=== PATIENT | female | born 1980 | race Caucasian/White ===

== ENCOUNTER → 2017-08-17 | Outpatient (REF) | payer MEDICAID ==
[~2017-08-17] MED LIST: DONN16.2 PO; IBUP200T2 PO; NEUR300C PO; NORCOTAB PO; PERCOCET PO; PRIL40CA PO; PYRI200T2 PO; SENO8.6T9 PO; ZANT150T PO; birth control patch TOP; no historical meds
== END ==
LOC: M LAB REF 12:50
PROVIDERS: ATTEND Obstetrics & Gynecology
DX: Z34.82 Encounter for supervision of other normal pregnancy, second trimester (principal)

== ENCOUNTER 2017-10-20 11:30 | Outpatient (CLI) | payer MEDICAID ==
[2017-10-20] MEDS ORDERED: FIORICET TAB PO ×2 (12:15)
[2017-10-20 12:29] LABS: HEMATOCRIT 33.7 % (36.0-47.0); HEMOGLOBIN 11.6 g/dl (12.0-16.0); MEAN CORPUSCULAR HGB CONC 34.4 g/dl (32.0-36.5); MEAN CORPUSCULAR VOLUME 93.1 fl (80.0-96.0); PLATELET COUNT, AUTOMATED 192 10^3/uL (150-450); RED BLOOD COUNT 3.62 10^6/uL (4.00-5.40); RED CELL DISTRIBUTION WIDTH 12.4 % (11.5-14.5); WHITE BLOOD COUNT 7.2 10^3/uL (4.0-10.0)
[2017-10-20 12:52] LABS: ALT/SGPT 13 U/L (12-78); AST/SGOT 13 U/L (7-37); BILIRUBIN,TOTAL 0.3 MG/DL (0.2-1.0); CREATININE FOR GFR 0.48 MG/DL (0.55-1.02); GLOMERULAR FILTRATION RATE > 60.0 (>60); LDH LACTATE DEHYDROGENASE 119 U/L (84-246); URIC ACID 2.4 MG/DL (2.6-6.0)
[2017-10-20 13:06] LABS: CREATININE,RANDOM URINE 20.6 MG/DL
[2017-10-20 13:06] LABS: TOTAL PROTEIN,RANDOM URINE < 5.0 MG/DL (0.0-12.0)
[2017-10-20] MEDS: PROMETHAZINE INJ 25 MG/ML VIAL (J2550) IV (14:29)
[2017-10-20] MEDS: BUTORPHANOL 2 MG/ML INJ (J0595) IV (14:30)
== END 2017-10-20 17:40 | disposition home or self-care (01) ==
LOC: M LDO 11:30
DX: O16.2 Unspecified maternal hypertension, second trimester (principal); O26.892 Other specified pregnancy related conditions, second trimester; R51 Headache; Z3A.26 26 weeks gestation of pregnancy
CPT/HCPCS: 96375

== ENCOUNTER → 2017-10-25 | Outpatient (CLI) | payer OTHER ==
[2017-10-25 09:29] LABS: GLUCOSE, FASTING 182 MG/DL (LESS THAN 95)
[2017-10-25 09:31] LABS: ESTIMATED AVERAGE GLUCOSE 128 MG/DL (60-110); HEMOGLOBIN A1c 6.1 %
[2017-10-25 10:13] LABS: 1 HR GLUCOSE 206 MG/DL (LESS THAN 180)
[2017-10-25 11:12] LABS: 2 HR GLUCOSE 198 MG/DL (LESS THAN 155)
[2017-10-25 12:35] LABS: 3 HR GLUCOSE 134 MG/DL (LESS THAN 140)
== END ==
LOC: M LAB 08:13
DX: O99.810 Abnormal glucose complicating pregnancy (principal)
CPT/HCPCS: 82951

== ENCOUNTER 2017-11-08 18:21 | Outpatient (CLI) | payer OTHER ==
[2017-11-08 19:42] LABS: APPEARANCE, URINE CLOUDY (CLEAR); BACTERIA, URINE AUTO 1+ (NEGATIVE); BILIRUBIN, URINE AUTO NEGATIVE (NEGATIVE); BLOOD, URINE BLOOD NEGATIVE (NEGATIVE); COLOR, URINE AMBER (YELLOW); GLUCOSE, URINE (UA) AUTO NEGATIVE (NEGATIVE); KETONE, URINE AUTO TRACE mg/dL (NEGATIVE); LEUKOCYTE ESTERASE, URINE AUTO NEGATIVE (NEGATIVE); MUCUS, URINE SMALL (NEGATIVE); NITRITE, URINE AUTO NEGATIVE (NEGATIVE); PROTEIN, URINE AUTO 1+ mg/dL (NEGATIVE); RBC, URINE AUTO 1 /HPF (0-3); SPECIFIC GRAVITY URINE AUTO 1.039 (1.002-1.035); SQUAMOUS EPITHELIAL CELL UR AU 17 /HPF (0-6); WBC, URINE AUTO 1 /HPF (0-3)
[2017-11-08] MEDS ORDERED: LR 1,000 ML IV (21:00)
[2017-11-08] MEDS ORDERED: LACTATED RINGER'S 1000 ML IV (21:00)
== END 2017-11-08 23:45 | disposition home or self-care (01) ==
LOC: M LDO 18:21
DX: O26.893 Other specified pregnancy related conditions, third trimester (principal); Z3A.29 29 weeks gestation of pregnancy; E86.0 Dehydration; N89.8 Other specified noninflammatory disorders of vagina; O62.0 Primary inadequate contractions; O99.283 Endocrine, nutritional and metabolic diseases complicating pregnancy, third trimester
CPT/HCPCS: 96360

== ENCOUNTER → 2017-11-27 | Outpatient (CLI) | payer OTHER ==
[2017-11-27] MEDS: FIORICET TAB PO (21:54)
[2017-11-27 22:16] LABS: TOTAL PROTEIN,RANDOM URINE < 5.0 MG/DL (0.0-12.0)
[2017-11-27 22:16] LABS: CREATININE,RANDOM URINE 50.9 MG/DL
== END ==
LOC: M LDO 20:37
DX: O99.89 Other specified diseases and conditions complicating pregnancy, childbirth and the puerperium (principal); Z3A.32 32 weeks gestation of pregnancy; R51 Headache; O13.3 Gestational [pregnancy-induced] hypertension without significant proteinuria, third trimester; O24.419 Gestational diabetes mellitus in pregnancy, unspecified control; O99.333 Smoking (tobacco) complicating pregnancy, third trimester; O99.353 Diseases of the nervous system complicating pregnancy, third trimester; Z86.73 Personal history of transient ischemic attack (TIA), and cerebral infarction without residual deficits
CPT/HCPCS: 82570

== ENCOUNTER → 2017-12-02 | Outpatient (CLI) | payer OTHER ==
[~2017-12-02] MED LIST changes: +ACETAMINOPHEN 500 MG TAB As Ordered; +ACETAMINOPHEN 500 MG TAB PO; -DONN16.2 PO; -IBUP200T2 PO; -NEUR300C PO; -NORCOTAB PO; -PERCOCET PO; -PRIL40CA PO; -PYRI200T2 PO; -SENO8.6T9 PO; -ZANT150T PO; -birth control patch TOP; -no historical meds
== END ==
LOC: M LDO 03:37
DX: O99.89 Other specified diseases and conditions complicating pregnancy, childbirth and the puerperium (principal); Z3A.32 32 weeks gestation of pregnancy; W19.XXXA Unspecified fall, initial encounter; O24.419 Gestational diabetes mellitus in pregnancy, unspecified control; O13.3 Gestational [pregnancy-induced] hypertension without significant proteinuria, third trimester

== ENCOUNTER → 2017-12-20 | Outpatient (REF) | payer OTHER | LOC: M LAB REF 16:35 | DX: Z36.85 Encounter for antenatal screening for Streptococcus B (principal); O09.893 Supervision of other high risk pregnancies, third trimester; Z3A.35 35 weeks gestation of pregnancy | CPT/HCPCS: 87081 ==

== ENCOUNTER 2017-12-24 15:02 | Outpatient (CLI) | payer OTHER | END 2017-12-24 16:26 | disposition home or self-care (01) | LOC: M LDO 15:02 | DX: O26.893 Other specified pregnancy related conditions, third trimester (principal); Z3A.36 36 weeks gestation of pregnancy; R51 Headache; Z87.59 Personal history of other complications of pregnancy, childbirth and the puerperium ==

== ENCOUNTER 2018-01-02 20:22 | Inpatient (IN) | payer OTHER ==
[2018-01-02] MEDS: LR 1,000 ML IV ×2 (21:21→23:41)
[2018-01-02 21:25] LABS: HEMATOCRIT 34.6 % (36.0-47.0); MEAN CORPUSCULAR HEMOGLOBIN 31.3 pg (27.0-33.0); MEAN CORPUSCULAR HGB CONC 34.7 g/dl (32.0-36.5); MEAN CORPUSCULAR VOLUME 90.3 fl (80.0-96.0); PLATELET COUNT, AUTOMATED 196 10^3/uL (150-450); RED BLOOD COUNT 3.83 10^6/uL (4.00-5.40); RED CELL DISTRIBUTION WIDTH 12.7 % (11.5-14.5); WHITE BLOOD COUNT 9.9 10^3/uL (4.0-10.0)
[2018-01-02 21:47] LABS: ALT/SGPT 13 U/L (12-78); AST/SGOT 12 U/L (7-37); BILIRUBIN,TOTAL 0.3 MG/DL (0.2-1.0); GLOMERULAR FILTRATION RATE > 60.0 (>60); LDH LACTATE DEHYDROGENASE 144 U/L (84-246); URIC ACID 4.5 MG/DL (2.6-6.0)
[2018-01-02] MEDS ORDERED: OXYTOCIN INJ 10 UNITS/ML VIAL (J2590) As Ordered ×3 (21:51)
[2018-01-02] MEDS ORDERED: MORPHINE PRES-FREE INJ 10 MG/10 ML VIAL (J2274) As Ordered (21:51)
[2018-01-02] MEDS: LACTATED RINGER'S 1000 ML IV (22:01)
[2018-01-02] MEDS: BICITRA 30ML SOLN UDC PO (22:01)
[2018-01-02] MEDS ORDERED: EPINEPHrine INJ 1 MG/ML 1ML AMP As Ordered (22:12)
[2018-01-02] MEDS ORDERED: ONDANSETRON 4MG/2ML VIAL (J2405) IV ×2 (22:27→23:45)
[2018-01-02] MEDS ORDERED: NALOXONE INJ 0.4 MG/1 ML VIAL (J2310) IV ×2 (22:27)
[2018-01-02] MEDS ORDERED: NALBUPHINE HCL 10 MG/ML AMP (J2300) IV (22:27)
[2018-01-02] MEDS ORDERED: METOCLOPRAMIDE INJ 10MG/2ML VIAL (J2765) IV (22:27)
[2018-01-02] MEDS ORDERED: ePHEDrine SULFATE 25 MG/5 ML(5MG/ML) SYRINGE As Ordered ×2 (22:36)
[2018-01-02] MEDS ORDERED: PHENYLephrine HCL 500 MCG/5 ML (100MCG/ML) SYRINGE (J2370) As Ordered (22:36)
[2018-01-02] MEDS ORDERED: ONDANSETRON 4MG/2ML VIAL (J2405) As Ordered (22:38)
[2018-01-02] MEDS ORDERED: KETOROLAC 60 MG/2 ML VIAL (J1885) As Ordered ×2 (23:11→23:12)
[2018-01-02] MEDS ORDERED: MOM 30ML SUSPENSION UDC PO (23:45)
[2018-01-02] MEDS ORDERED: fentaNYL 100 MCG/2 ML INJECTION (J3010) IV (23:45)
[2018-01-02] MEDS ORDERED: PERCOCET 5MG/325MG TAB PO ×2 (23:45)
[2018-01-02] MEDS: OXYTOCIN DRIP 30 UNITS in APPROPRIATE DILUENT 1 EA IV (23:45)
[2018-01-02] MEDS ORDERED: RHOGAM 300 MCG (1500 IU) INJ (J2790) IM (23:45)
[2018-01-02] MEDS ORDERED: MEASLES,MUMPS,RUBELLA VACCINE INJ (MMR-II) (90707) SC (23:45)
[2018-01-03] MEDS: KETOROLAC 30 MG/ML VIAL (J1885) IV ×4 (06:06→23:08)
[2018-01-03] MEDS: LR 1,000 ML IV ×2 (07:41→15:41)
[2018-01-03 08:38] LABS: HEMATOCRIT 31.8 % (36.0-47.0); HEMOGLOBIN 10.7 g/dl (12.0-16.0); MEAN CORPUSCULAR HEMOGLOBIN 30.4 pg (27.0-33.0); MEAN CORPUSCULAR HGB CONC 33.6 g/dl (32.0-36.5); MEAN CORPUSCULAR VOLUME 90.3 fl (80.0-96.0); PLATELET COUNT, AUTOMATED 182 10^3/uL (150-450); RED BLOOD COUNT 3.52 10^6/uL (4.00-5.40); RED CELL DISTRIBUTION WIDTH 12.8 % (11.5-14.5); WHITE BLOOD COUNT 12.1 10^3/uL (4.0-10.0)
[2018-01-03] MEDS: PRENATAL VITAMINS CHEWABLE TABLET PO (09:14)
[2018-01-04] MEDS: PRENATAL VITAMINS CHEWABLE TABLET PO (08:31)
[2018-01-04] MEDS: IBUPROFEN 800 MG TAB PO ×2 (08:32→16:38)
[2018-01-05] MEDS: IBUPROFEN 800 MG TAB PO ×2 (00:25→07:02)
[2018-01-05] MEDS: PRENATAL VITAMINS CHEWABLE TABLET PO (07:42)
== END 2018-01-05 10:10 | disposition home or self-care (01) | DRG 540 ==
LOC: M LDO 20:22 → M OBS 01-03 01:10 → M LDI 20:58
PROVIDERS: Obstetrics & Gynecology
PROC: 10D00Z1 Extraction of Products of Conception, Low, Open Approach (ICD-10-PCS; principal; 2018-01-02 07:53)
PROC: 0UL70DZ Occlusion of Bilateral Fallopian Tubes with Intraluminal Device, Open Approach (ICD-10-PCS; 2018-01-02 07:53)
DX: O34.211 Maternal care for low transverse scar from previous cesarean delivery (principal); F17.200 Nicotine dependence, unspecified, uncomplicated; Z37.0 Single live birth; Z3A.37 37 weeks gestation of pregnancy; O09.523 Supervision of elderly multigravida, third trimester; Z30.2 Encounter for sterilization; O99.334 Smoking (tobacco) complicating childbirth

== ENCOUNTER → 2018-02-11 | Outpatient (REF) | payer OTHER ==
[2018-02-11 18:27] LABS: FREE T4 0.82 NG/DL (0.76-1.46)
[2018-02-11 18:34] LABS: RUBELLA IgG QUALITATIVE IMMUNE (IMMUNE)
[2018-02-13 08:06] LABS: RUBEOLA IgG ANTIBODY <25.0 AU/mL (Immune >29.9)
[2018-02-13 08:06] LABS: MUMPS VIRUS IgG ANTIBODY <9.0 AU/mL (Immune >10.9)
== END ==
LOC: M LAB REF 17:35
DX: Z02.1 Encounter for pre-employment examination (principal)
CPT/HCPCS: 84443

== ENCOUNTER → 2018-02-14 | Outpatient (REF) | payer OTHER, MEDICAID ==
[2018-02-14 19:41] LABS: CHOLESTEROL LEVEL 262 MG/DL (<200); CHOLESTEROL RISK RATIO 7.485 (<5); HDL CHOLESTEROL 35 MG/DL (>40); NON-HDL-C 227 MG/DL; TRIGLYCERIDES LEVEL 568 MG/DL (<150)
== END ==
LOC: M LAB REF 18:52
DX: Z13.220 Encounter for screening for lipoid disorders (principal)
CPT/HCPCS: 80061

== ENCOUNTER → 2018-02-16 | Outpatient (CLI) | payer OTHER ==
[2018-02-16 08:28] LABS: GLUCOSE, FASTING 116 MG/DL (70-100)
[2018-02-16 09:39] LABS: 1 HR GLUCOSE 226 MG/DL (LESS THAN 199)
[2018-02-16 10:25] LABS: 2 HR GLUCOSE 103 MG/DL (LESS THAN 140)
== END ==
LOC: M LAB 07:19
DX: Z86.32 Personal history of gestational diabetes (principal)
CPT/HCPCS: 82951

== ENCOUNTER → 2018-03-01 | Outpatient (CLI) | payer OTHER ==
[~2018-03-01] MED LIST changes: -ACETAMINOPHEN 500 MG TAB As Ordered; -ACETAMINOPHEN 500 MG TAB PO; +ISOVUE-370 76% 100ML VIAL (Q9967) As Ordered
== END ==
LOC: M RADPRO 12:02
DX: Z98.51 Tubal ligation status (principal)
CPT/HCPCS: 58340

== ENCOUNTER → 2018-04-19 | Outpatient (REF) | payer OTHER ==
[2018-04-19 18:22] LABS: RHEUMATOID FACTOR QUANT < 10.0 IU/ML (<15.0)
[2018-04-23 00:13] LABS: ANTI DOUBLE STRAND-DNA AB <1 IU/mL (0-9); ANTINUCLEAR ANTIBODIES DIRECT Positive (Negative); Lyme Disease IgG/IgM Antibodie <0.91 ISR (0.00-0.90); Lyme Disease IgM Ab Quantitati <0.80 index (0.00-0.79); SJOGREN'S ANTI SS-A <0.2 AI (0.0-0.9); SJOGREN'S ANTI SS-B <0.2 AI (0.0-0.9); SMITH ANTIBODIES <0.2 AI (0.0-0.9)
== END ==
LOC: M LAB REF 17:05
DX: M25.50 Pain in unspecified joint (principal)
CPT/HCPCS: 86038

== ENCOUNTER → 2018-06-28 | Outpatient (REF) | payer OTHER ==
[2018-07-01 00:07] LABS: CYCLIC CITRULLINATED PEPTIDE 6 units (0-19)
== END ==
LOC: M LAB REF 12:02
DX: M25.50 Pain in unspecified joint (principal)
CPT/HCPCS: 86200

== ENCOUNTER → 2018-07-18 | Outpatient (REF) | payer OTHER | LOC: M SFHCLERA 18:53 | DX: R53.81 Other malaise (principal) ==

== ENCOUNTER → 2018-07-18 | Outpatient (CLI) | payer OTHER | LOC: M LRY 18:48 | DX: R09.89 Other specified symptoms and signs involving the circulatory and respiratory systems (principal) | CPT/HCPCS: 71046 ==

== ENCOUNTER → 2018-11-16 | Outpatient (CLI) | payer OTHER ==
[~2018-11-16] MED LIST changes: +BENA25CA4 PO; +DONN16.2 PO; +IBUP-1114 PO; +IBUP200T2 PO; -ISOVUE-370 76% 100ML VIAL (Q9967) As Ordered; +LABE10TAB PO; +MAPA500T2 PO; +METF500T13 PO; +NEUR300C PO; +NORCOTAB PO; +OMEP40CA2 PO; +PERC5TAB12 PO; +PERCOCET PO; +PRENTAB9 PO; +PRIL40CA PO; +PYRI200T2 PO; +RANI15TA PO; +SENO8.6T9 PO; +VITATAB11 PO; +ZANT150T PO; +birth control patch TOP; +no historical meds
--- NOTE | 2018-11-16 11:12 | REP ---
Clinical: Arthralgia. Technique: AP and frog lateral views of the right and left hip. Findings: Hip joints appear relatively symmetric. Minimal increased sclerosis along the acetabular roof is suggested without significant joint space narrowing. No significant osteophytosis, periarticular calcifications or loose bodies identified. Proximal femurs appear intact and normal. Impression: Relatively symmetric age-appropriate examination. Electronically Signed by Claudy Guevara MD 11/16/2018 11:04 A
--- NOTE | 2018-11-16 11:13 | REP ---
Clinical: Arthralgia. Technique: AP, inlet, and bilateral oblique views of the sacroiliac joints. Findings: The bilateral sacroiliac joints are symmetric and normal for age. The surrounding osseous structures are intact. The surrounding soft tissues are normal. Evidence for tubal ligation and piercing. Impression: Essentially normal symmetric appearance the bilateral sacroiliac joints. Electronically Signed by Claudy Guevara MD 11/16/2018 11:05 A
[2018-11-16 13:33] LABS: BASO % 0.5 % (0.0-1.0); EOS # 0.4 10^3/uL (0.0-0.50); EOS % 4.1 % (0.0-3.0); HEMATOCRIT 42.2 % (36.0-47.0); HEMOGLOBIN 13.9 g/dl (12.0-15.5); LYMPH # 2.7 10^3/uL (1.5-4.5); LYMPH % 31.6 % (24.0-44.0); MEAN CORPUSCULAR HEMOGLOBIN 31.3 pg (27.0-33.0); MEAN CORPUSCULAR HGB CONC 32.9 g/dl (32.0-36.5); MONO # 0.8 10^3/uL (0.0-0.8); MONO % 9.5 % (0.0-5.0); NEUTROPHILS # 4.6 10^3/uL (1.8-7.7); NEUTROPHILS % 53.9 % (36.0-66.0); PLATELET COUNT, AUTOMATED 254 10^3/uL (150-450); RED BLOOD COUNT 4.44 10^6/uL (4.00-5.40); WHITE BLOOD COUNT 8.6 10^3/uL (4.0-10.0)
[2018-11-16 13:41] LABS: ALBUMIN 3.9 GM/DL (3.2-5.2); ALT/SGPT 31 U/L (12-78); BILIRUBIN,TOTAL 0.4 MG/DL (0.2-1.0); BLOOD UREA NITROGEN 9 MG/DL (7-18); C REACTIVE PROTEIN QUANTITATIV < 0.30 MG/DL (0.00-0.30); CARBON DIOXIDE LEVEL 28 MEQ/L (21-32); CHLORIDE LEVEL 105 MEQ/L (98-107); CREATININE FOR GFR 0.78 MG/DL (0.55-1.30); GLOMERULAR FILTRATION RATE > 60.0 (>60); GLUCOSE, FASTING 141 MG/DL (70-100); POTASSIUM SERUM 4.7 MEQ/L (3.5-5.1); SODIUM LEVEL 137 MEQ/L (136-145); TOTAL PROTEIN 6.7 GM/DL (6.4-8.2)
[2018-11-16 14:01] LABS: ERYTHROCYTE SEDIMENTATION RATE 5 mm/hr (0-20)
[2018-11-18 00:07] LABS: ANA (HEP2) Negative (.); RNP ANTIBODY 0.7 AI (0.0-0.9); SMITHS ANTIBODY < 0.2 AI (0.0-0.9)
== END ==
LOC: M SMT 10:40
PROVIDERS: ATTEND Internal Medicine Rheumatology
DX: M25.559 Pain in unspecified hip (principal); R76.8 Other specified abnormal immunological findings in serum

== ENCOUNTER → 2019-03-31 | Outpatient (REF) | payer OTHER ==
[~2019-03-31] MED LIST changes: +OXYC1TAB23 PO; -PERCOCET PO
== END ==
LOC: M LAB REF 11:28
PROVIDERS: ATTEND Internal Medicine
DX: F17.210 Nicotine dependence, cigarettes, uncomplicated (principal); F18.10 Inhalant abuse, uncomplicated

== ENCOUNTER 2019-05-19 13:29 | Emergency (ER) | payer OTHER ==
[~2019-05-19] VITALS: Ht 167.6 cm; Wt 89.1 kg
[~2019-05-19 13:29] MED LIST changes: -OMEP40CA2 PO; +OMEP40CA97 PO
[2019-05-19] MEDS ORDERED: ESCI20TA (13:37)
[2019-05-19] MEDS ORDERED: ATOR40TA75 (13:37)
[2019-05-19] MEDS ORDERED: VALS1TAB66 (13:37)
[2019-05-19 14:04] LABS: BASO % 0.3 % (0.0-1.0); EOS # 0.3 10^3/uL (0.0-0.50); EOS % 3.7 % (0.0-3.0); HEMATOCRIT 40.6 % (36.0-47.0); HEMOGLOBIN 13.8 g/dl (12.0-15.5); LYMPH # 1.4 10^3/uL (1.5-4.5); MEAN CORPUSCULAR HEMOGLOBIN 32.2 pg (27.0-33.0); MEAN CORPUSCULAR VOLUME 94.6 fl (80.0-96.0); MONO # 0.5 10^3/uL (0.0-0.8); MONO % 5.4 % (0.0-5.0); NEUTROPHILS # 6.6 10^3/uL (1.8-7.7); NEUTROPHILS % 74.4 % (36.0-66.0); PLATELET COUNT, AUTOMATED 301 10^3/uL (150-450); RED BLOOD COUNT 4.29 10^6/uL (4.00-5.40); WHITE BLOOD COUNT 8.9 10^3/uL (4.0-10.0)
[2019-05-19 14:28] LABS: ALBUMIN 4.3 GM/DL (3.2-5.2); BILIRUBIN,DIRECT 0.2 MG/DL (0.0-0.2); BILIRUBIN,TOTAL 0.8 MG/DL (0.2-1.0); CALCIUM LEVEL 9.8 MG/DL (8.5-10.1); CREATININE FOR GFR 1.17 MG/DL (0.55-1.30); GLOMERULAR FILTRATION RATE 55.4 (>60); POTASSIUM SERUM 3.2 MEQ/L (3.5-5.1); TOTAL PROTEIN 7.2 GM/DL (6.4-8.2)
[2019-05-19] MEDS ORDERED: NS 1,000 ML IV ONE (15:00)
[2019-05-19] MEDS ORDERED: ISOVUE-370 76% 100ML VIAL (Q9967) As Ordered ONE (15:01)
--- NOTE | 2019-05-19 15:32 | REP ---
Clinical: Abdominal pain and diarrhea with recent gastric bypass surgery. Technique: Axial contrast enhanced images from the lung bases to the pubic symphysis using 100 ml Isovue 370 intravenous contrast material. Comparison: 11/14/2013. Findings: Lung bases are clear. Visualized heart and pericardium normal. Liver, spleen, pancreas, bilateral adrenal glands and kidneys are normal. Evidence for prior gastric bypass surgery and cholecystectomy. Mildly prominent fluid filled loops of small and large bowel noted throughout the abdomen and pelvis consistent with enterocolitis and a given history of diarrhea. No bowel obstruction. Pelvis demonstrates collapsed bladder and age-appropriate uterus/adnexa with suspected myomatous changes. No ascites. No free air. No adenopathy. Abdominal aorta without aneurysm or dissection. Musculoskeletal structures intact. Impression: Findings suggesting enterocolitis. Electronically Signed by Claudy Guevara MD 05/19/2019 03:24 P
[2019-05-19] MEDS ORDERED: ACETAMINOPHEN 325 MG TAB PO ONE (16:30)
[2019-05-19] MEDS ORDERED: ONDANSETRON 4MG/2ML VIAL (J2405) IV ONE (16:30)
[2019-05-19] MEDS ORDERED: POTASSIUM CHLORIDE 10 MEQ SR TABLET PO ONE (16:45)
[2019-05-19 17:45] VITALS: BP 106/54
== END 2019-05-19 17:52 | disposition home or self-care (01) ==
LOC: M ED 13:29
DX: E86.0 Dehydration (principal); R93.3 Abnormal findings on diagnostic imaging of other parts of digestive tract; Z98.890 Other specified postprocedural states; Z98.84 Bariatric surgery status; E11.9 Type 2 diabetes mellitus without complications; I10 Essential (primary) hypertension; K21.9 Gastro-esophageal reflux disease without esophagitis; F17.210 Nicotine dependence, cigarettes, uncomplicated; Z79.899 Other long term (current) drug therapy
CPT/HCPCS: 74177; 80048; 80076; 83690; 84702; 85025; 96374; 99284; J2405; Q9967

== ENCOUNTER → 2019-08-15 | Outpatient (REF) | payer OTHER ==
[~2019-08-15] MED LIST changes: +ATOR40TA75; +ESCI20TA; +VALS1TAB66
[2019-08-15 18:39] LABS: PERCENT SATURATION 29.6 % (13.2-45.0)
== END ==
LOC: M LAB REF 16:50
PROVIDERS: ATTEND Internal Medicine
DX: Z98.84 Bariatric surgery status (principal)

== ENCOUNTER → 2019-08-17 | Outpatient (REF) | payer OTHER | LOC: M SFHCPLAZ 09:51 | PROVIDERS: ATTEND Dermatology | DX: L57.0 Actinic keratosis (principal) ==

== ENCOUNTER → 2019-09-26 | Outpatient (REF) | payer OTHER | LOC: M LAB REF 19:07 | PROVIDERS: ATTEND Dermatology | DX: L72.11 Pilar cyst (principal) ==

== ENCOUNTER → 2019-11-14 | Outpatient (REF) | payer OTHER | LOC: M LAB REF 10:37 | PROVIDERS: ATTEND Dermatology | DX: L72.11 Pilar cyst (principal) ==

== ENCOUNTER 2019-11-18 12:55 | Emergency (ER) | payer OTHER ==
[~2019-11-18] VITALS: Ht 167.6 cm; Wt 69.5 kg
[2019-11-18] MEDS ORDERED: NITR100C2 PO (13:05)
[2019-11-18] MEDS ORDERED: PHEN-501 PO (13:05)
[2019-11-18] MEDS ORDERED: BUPR1TAB52 PO (13:05)
[2019-11-18] MEDS ORDERED: HYDR-3363 PO (13:05)
[2019-11-18] MEDS ORDERED: NS 1,000 ML IV ONE (13:45)
[2019-11-18 13:56] LABS: BASO % 0.4 % (0.0-1.0); EOS # 0.2 10^3/uL (0.0-0.5); EOS % 2.2 % (0.0-3.0); HEMATOCRIT 38.7 % (36.0-47.0); HEMOGLOBIN 12.5 g/dl (12.0-15.5); LYMPH # 2.7 10^3/uL (1.5-5.0); MEAN CORPUSCULAR HEMOGLOBIN 30.7 pg (27.0-33.0); MEAN CORPUSCULAR HGB CONC 32.3 g/dl (32.0-36.5); MEAN CORPUSCULAR VOLUME 95.1 fl (80.0-96.0); MONO # 0.8 10^3/uL (0.0-0.8); NEUTROPHILS # 5.1 10^3/uL (1.5-8.5); PLATELET COUNT, AUTOMATED 235 10^3/uL (150-450); RED BLOOD COUNT 4.07 10^6/uL (4.00-5.40); WHITE BLOOD COUNT 8.9 10^3/uL (4.0-10.0)
[2019-11-18 14:28] LABS: ALBUMIN 3.7 GM/DL (3.2-5.2); ALT/SGPT 21 U/L (12-78); BILIRUBIN,DIRECT 0.1 MG/DL (0.0-0.2); BILIRUBIN,TOTAL 0.3 MG/DL (0.2-1.0); BLOOD UREA NITROGEN 7 MG/DL (7-18); CALCIUM LEVEL 8.7 MG/DL (8.5-10.1); CARBON DIOXIDE LEVEL 28 MEQ/L (21-32); CHLORIDE LEVEL 111 MEQ/L (98-107); GLOMERULAR FILTRATION RATE > 60.0 (>60); GLUCOSE, FASTING 70 MG/DL (70-100); LIPASE 100 U/L (73-393); POTASSIUM SERUM 4.3 MEQ/L (3.5-5.1); SODIUM LEVEL 144 MEQ/L (136-145); TOTAL PROTEIN 6.3 GM/DL (6.4-8.2)
[2019-11-18] MEDS ORDERED: ISOVUE-370 76% 100ML VIAL (Q9967) As Ordered ONE (14:29)
--- NOTE | 2019-11-18 15:04 | REP ---
CT of the abdomen and pelvis with IV contrast, without bowel contrast for left sided abdominal pain: Comparison is 05/19/2019. The visualized lung singh are unremarkable. The hepatic parenchyma is homogeneous. There are surgical clips in the gallbladder fossa. The pancreas and spleen are unremarkable. The adrenals are unremarkable. The kidneys are unremarkable. The abdominal aorta is unremarkable. There is no retroperitoneal/periaortic adenopathy or mass. There is wall thickening of the transverse colon, descending colon, sigmoid colon. This is nonspecific but compatible with colitis in the appropriate clinical setting. There are multiple loops of proximal and mid small bowel h with wall thickening and mild wall enhancement compatible with enteritis in the appropriate clinical setting. The mesentery is unremarkable. There is no ascites. There are surgical clips in the upper abdomen compatible with bariatric surgery. Pelvis: The appendix is unremarkable. The uterus is anteverted. There is a 2.2 cm left adnexal cyst. There is no ascites. Impression: Findings are compatible with enterocolitis in the appropriate clinical setting. There is no ascites. 2.2 cm left adnexal cyst. Cholecystectomy. Electronically Signed by Flaquito Hatfield MD 11/18/2019 02:56 P
[2019-11-18 15:31] VITALS: BP 106/55
== END 2019-11-18 15:33 | disposition home or self-care (01) ==
LOC: M ED 12:55
DX: K52.9 Noninfective gastroenteritis and colitis, unspecified (principal); N83.202 Unspecified ovarian cyst, left side; N39.0 Urinary tract infection, site not specified; I10 Essential (primary) hypertension; K21.9 Gastro-esophageal reflux disease without esophagitis; F17.210 Nicotine dependence, cigarettes, uncomplicated; Z79.899 Other long term (current) drug therapy; Z98.0 Intestinal bypass and anastomosis status; Z98.890 Other specified postprocedural states
CPT/HCPCS: 36415; 74177; 80048; 80076; 81001; 83690; 85025; 87086; 96360; 96361; 99284; Q9967

== ENCOUNTER → 2020-01-08 | Outpatient (REF) | payer OTHER ==
[~2020-01-08] MED LIST changes: +BUPR1TAB52 PO; +HYDR-3363 PO; +NITR100C2 PO; +PHEN-501 PO
[2020-01-09 13:30] LABS: CHLAMYDIA DNA AMPLIFICATION NEGATIVE (NEGATIVE); GC DNA AMPLIFICATION NEGATIVE (NEGATIVE)
== END ==
LOC: M SFHCLERA 19:57
PROVIDERS: ATTEND Nurse Practitioner Family
DX: R30.0 Dysuria (principal)

== ENCOUNTER → 2020-03-22 | Outpatient (REF) | payer OTHER ==
[2020-03-26 15:12] LABS: C-PEPTIDE 7.9 ng/mL (1.1-4.4); INSULIN LEVEL 45.8 uIU/mL (2.6-24.9)
== END ==
LOC: M LAB REF 17:01
PROVIDERS: ATTEND Internal Medicine
DX: E16.2 Hypoglycemia, unspecified (principal)

== ENCOUNTER → 2020-04-04 | Outpatient (REF) | payer OTHER ==
[2020-04-05 08:09] LABS: C-PEPTIDE 3.1 ng/mL (1.1-4.4); INSULIN LEVEL 10.4 uIU/mL (2.6-24.9)
== END ==
LOC: M LAB REF 12:10
PROVIDERS: ATTEND Internal Medicine
DX: E16.2 Hypoglycemia, unspecified (principal)

== ENCOUNTER → 2020-06-05 | Outpatient (REF) ==
[2020-06-08 10:08] LABS: RUBEOLA IgG ANTIBODY 38.4 AU/mL (Immune >16.4)
== END ==
LOC: M LAB 09:28
PROVIDERS: ATTEND Nurse Practitioner Adult Health
DX: Z02.1 Encounter for pre-employment examination (principal)

== ENCOUNTER 2020-11-19 13:54 | Emergency (ER) | payer OTHER ==
[~2020-11-19] VITALS: Ht 167.6 cm; Wt 64.5 kg
[~2020-11-19 13:54] MED LIST changes: -ESCI20TA; +ESCI20TA16; +LABE100T4 PO; -LABE10TAB PO
--- OUTSIDE RECORDS SUMMARY | 2020-11-19 15:05 | CCD | Continuity of Care Document ---
Author Author Sury MORAN MD Organization Unknown Address [address] [place] [address], [address] [address] Phone [phone] Care Team Providers Care Toll Service Observer Name Role Phone Emilia Padilla DO AUTM [phone] Lewis Brito PA-C AUTM [phone] Problems Description No Information Available Social History Type Date Description Comments Sex Unknown Allergies, Adverse Reactions, Alerts Description No Information Available Medications Description No Information Available Immunizations Description No Information Available Vital Signs Description No Information Available Results Description No Information Available Procedures Date Code Description Status 09/26/2020 60926 MRI Upper Extremity Any Joint Co mpleted Medical Devices Description No Information Available Encounters Type Date Location Provider Dx Diagnosis Office Visit 10/03/2020 1:00p Opal Moran MD M77.11 Lateral epicondylitis, right elbow Office Visit 08/06/2020 9:30a Opal Moran MD M25.521 Pain in right elbow 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, righ t elbow Assessments Date Code Description Provider 10/03/2020 M77.11 Lateral epicondylitis, right elb ow Vik Moran MD 09/26/2020 M25.521 Pain in right elbow Vik gallegos MD 09/26/2020 M25.521 Pain in right elbow MRI 08/06/2020 M25.521 Pain in right elbow Vik galleogs MD 08/06/2020 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, right el bow Vik Moran MD Plan of Treatment 10/03/2020 - Vik Moran MD* M77.11 Lateral epicondylitis, right elbow* Follow up:* 2 months right elbow recheck with a PA per [facility] Functional Status Description No Information Available Mental Status Description No Information Available Referrals Refer to Reason for Referral Status Appt Date Vik Moran MD MRI RT ELBOW WRITTEN AUTH. PASSED TO XRAY. LS Created [address] [facility], [address] [place] [address] [phone]
--- OUTSIDE RECORDS SUMMARY | 2020-11-19 15:05 | CCD ---
Author Author [facility] Organization [facility] Address Unknown Phone Unavailable Care Team Providers Care Marketing Content Specialist Name Role Phone Leobardo Dozier Unavailable PROBLEMS Type Condition ICD9-CM Code [id number] Code Onset Dates Condition S tatus SNOMED Code Notes Problem Melanocytic nevi of face D22.30 Active 6334431 04 Problem Actinic keratoses L57.0 Active 826559543 Problem Lentigines L81.4 Active 588988546 Problem Melanocytic nevi of right upper limb, including shoulder D22.61 Active 369130987 Problem Melanocytic nevi of trunk D22.5 Active 364239 002 Problem Hirsutism L68.0 Active 173675581 Problem Melanocytic nevi of left lower limb, including hip D22.72 Active 187359830 Problem Melanocytic nevi of right lower limb, including hip D22.71 Active 759924022 Problem Melanocytic nevi of left upper limb, including shoulder D22.62 Active 879871757 ALLERGIES No Known Allergies ENCOUNTERS from 1980 to 2020-11-10 Encounter Location Date Provider Diagnosis [facility] Dermatology [address] [address] Oct, Leobardo Dozier IMMUNIZATIONS No Information SOCIAL HISTORY Tobacco Use: Social History Observation Description Date Details (start date - stop date) Current Smoker Sex Assigned At : Social History Observation Description Sex Assigned At Unknown Alcohol Screening: Question Answer Notes Did you have a drink containing alcohol in the past year? Ye s Points 2 Interpretation Negative How often did you have six or more drinks on one occas ion in the past year? Never (0 points) How many drinks did you have on a typica l day when you were drinking in the past year? 3 or 4 (1 point) How often did you have a drink containing alcohol in t he past year? Monthly or less (1 point) Tobacco Use: Question Answer Notes Are you a: current smoker How many cigarettes a day do you smoke? 11-20 Are you interested in quitting? Not ready to quit REASON FOR REFERRAL No Information VITAL SIGNS No information MEDICATIONS Medication SIG (Take, Route, Frequency, Duration) Notes Start Da te End Date Status Aspirin 81 Active Calcium + D Active Margy-D 24 Hour 180-240 MG 1 tablet Orally Once a day for 30 day(s) Active Atorvastatin Calcium 40 MG 1 tablet Orally Once a day Active Biotin 10 MG 1 tablet Orally Once a day for 30 day(s) Active Progesterone 100 MG 1 capsules Do not take Bring capsule to appointment with you for 1 days Active HydrOXYzine HCl 25 MG 2 tablets Orally Active Daily Vitamin Active Folic Acid 400 MCG 1 tablet Orally Once a day for 30 day(s) Active Vitamin B Complex Active Escitalopram Oxalate 20 MG 1 tablet Oral Once a day Active Omeprazole 40 MG Orally Active PROCEDURES No Information RESULTS No Results REASON FOR VISIT R/S Patch Testing MEDICAL (GENERAL) HISTORY Type Description Date Medical History hypertension Medical History seizures- age 20 Medical History right breast abscess (02/27) Surgical History carpal tunnel release-right wrist Surgical History tonsillectomy Surgical History C section X 3 Surgical History cyst removal from left foot and tailbone X 2 Surgical History gall bladder 01/24/2013 Surgical History umbilical hernia repair 01/24/13 Hospitalization History surgery and childbirth only Goals Section No Information Health Concerns No Information MEDICAL EQUIPMENT No Information MENTAL STATUS No Information FUNCTIONAL STATUS No Information ASSESSMENTS No Information PLAN OF TREATMENT Medication Medication Name Sig Start Date Stop Date Progesterone 100 MG 1 capsules Do not take Bring capsule to appointment with you for 1 days Insurance Providers Payer Name Payer Address Payer Phone Insured Name Patient Relati onship to Insured Coverage Start Date Coverage End Date [facility] CORPORATE CLAIMS DEPT [address] [place] [phone] ANUPAM VILLAFANA self
--- OUTSIDE RECORDS SUMMARY | 2020-11-19 15:06 | CCD | Continuity of Care Document ---
Author Author Sury MCADAMS Organization Unknown Address [address] [place] [address], [address] [place] [address] Phone [phone] Care Team Providers Care Insurance Verifier Name Role Phone Emilia Padilla AUTM [phone] Lewis Brito PA-C AUTM [phone] Problems Description No Information Available Social History Type Date Description Comments Sex Unknown Allergies, Adverse Reactions, Alerts Description No Information Available Medications Description No Information Available Immunizations Description No Information Available Vital Signs Description No Information Available Results Description No Information Available Procedures Description No Information Available Medical Devices Description No Information Available Encounters Type Date Location Provider Dx Diagnosis Office Visit 08/06/2020 9:30a [place] Vik Dutton MD M25.521 Pain in right elbow 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, righ t elbow Assessments Date Code Description Provider 08/06/2020 M25.521 Pain in right elbow Vik gallegos MD 08/06/2020 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, right el bow Vik Dutton MD Plan of Treatment Future Appointment(s):* 10/03/2020 1:00 pm - Vik Dutton MD at [place] 08/06/2020 - Vik Dutton MD* M25.521 Pain in right elbow * 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, right elbow* Follow up:* with PA for rt elbow mri results [facility] Functional Status Description No Information Available Mental Status Description No Information Available Referrals Refer to Reason for Referral Status Appt Date Vik Dutton MD MRI RT ELBOW WRITTEN AUTH. PASSED TO XRAY. LS Created [address] [place] [address], [address] [place] [address] [phone]
--- OUTSIDE RECORDS SUMMARY | 2020-11-19 15:06 | CCD | Continuity of Care Document ---
Author Author ABBESury Organization Unknown Address [address] [place] [address], [address] [address] Phone [phone] Care Team Providers Care Water Service Dispatcher Name Role Phone Emilia Padilla AUTM [phone] Lewis Brito PA-C AUTM [phone] Problems Description No Information Available Social History Type Date Description Comments Sex Unknown Allergies, Adverse Reactions, Alerts Description No Information Available Medications Description No Information Available Immunizations Description No Information Available Vital Signs Description No Information Available Results Description No Information Available Procedures Date Code Description Status 09/26/2020 20244 MRI Upper Extremity Any Joint Co mpleted Medical Devices Description No Information Available Encounters Type Date Location Provider Dx Diagnosis Office Visit 08/06/2020 9:30a [place] Vik Dutton MD M25.521 Pain in right elbow 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, righ t elbow Assessments Date Code Description Provider 09/26/2020 M25.521 Pain in right elbow Vik gallegos MD 09/26/2020 M25.521 Pain in right elbow MRI 08/06/2020 M25.521 Pain in right elbow Vik gallegos MD 08/06/2020 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, right el bow Vik Dutton MD Plan of Treatment Future Appointment(s):* 10/03/2020 1:00 pm - Vik Dutton MD at [place] 08/06/2020 - Vik Dutton MD* M25.521 Pain in right elbow * 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, right elbow* Follow up:* with PA for rt elbow mri results [facility] Functional Status Description No Information Available Mental Status Description No Information Available Referrals Refer to Reason for Referral Status Appt Date Vik Dutton MD MRI RT ELBOW WRITTEN AUTH. PASSED TO XRAY. LS Created [facility], [address] [place] [address] [phone]
--- OUTSIDE RECORDS SUMMARY | 2020-11-19 15:06 | CCD ---
Continuity of Care Document (CCD) Created on: 10/03/2020 Sury Allen External Reference #: [id number] : [id number] Sex: Female Author Author Sury MORAN MD Organization Unknown Address [address] [place] [address] Phone [phone] Care Team Providers Care Shellfish Grower Name Role Phone Emilia Padilla DO AUTM [phone] Lewis Brito PA-C AUTM [phone] Problems Description No Information Available Social History Type Date Description Comments Sex Unknown Allergies, Adverse Reactions, Alerts Description No Information Available Medications Description No Information Available Immunizations Description No Information Available Vital Signs Description No Information Available Results Description No Information Available Procedures Date Code Description Status 09/26/2020 26355 MRI Upper Extremity Any Joint Co mpleted Medical Devices Description No Information Available Encounters Type Date Location Provider Dx Diagnosis Office Visit 10/03/2020 1:00p Opal Moran MD 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, right elbow M25.421 Effusion, right elbow M77.11 Lateral epicondylitis, right elbow Office Visit 08/06/2020 9:30a [place] Moran MD M25.521 Pain in right elbow 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, righ t elbow Assessments Date Code Description Provider 10/03/2020 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, right el bow Vik Moran MD 10/03/2020 M25.421 Effusion, right elbow Vik Moran MD 10/03/2020 M77.11 Lateral epicondylitis, right elb ow Vik Moran MD 09/26/2020 M25.521 Pain in right elbow Vik gallegos MD 09/26/2020 M25.521 Pain in right elbow MRI 08/06/2020 M25.521 Pain in right elbow Vik gallegos MD 08/06/2020 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, right el bow Vik Moran MD Plan of Treatment 10/03/2020 - Vik Moran MD* 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, right elbow* Follow up:* 2 months right elbow recheck with a PA per [facility] * M25.421 Effusion, right elbow * M77.11 Lateral epicondylitis, right elbow Functional Status Description No Information Available Mental Status Description No Information Available Referrals Refer to Dr Reason for Referral Status Appt Date Vik Moran MD MRI RT ELBOW WRITTEN AUTH. PASSED TO XRAY. LS Created [facility], [address] [place] [address] [phone]
--- OUTSIDE RECORDS SUMMARY | 2020-11-19 15:06 | CCD ---
Author Author [facility] Organization [facility] Address Unknown Phone Unavailable Care Team Providers Care Tag Maker Name Role Phone Leobardo Dozier Unavailable PROBLEMS Type Condition ICD9-CM Code [id number] Code Onset Dates Condition S tatus SNOMED Code Notes Problem Melanocytic nevi of face D22.30 Active 1997415 04 Problem Actinic keratoses L57.0 Active 401421084 Problem Lentigines L81.4 Active 028161351 Problem Melanocytic nevi of right upper limb, including shoulder D22.61 Active 478813095 Problem Melanocytic nevi of trunk D22.5 Active 719746 002 Problem Hirsutism L68.0 Active 786355567 Problem Melanocytic nevi of left lower limb, including hip D22.72 Active 845859990 Problem Melanocytic nevi of right lower limb, including hip D22.71 Active 658366184 Problem Melanocytic nevi of left upper limb, including shoulder D22.62 Active 198101469 ALLERGIES No Known Allergies ENCOUNTERS from 1980 to 2020-10-20 Encounter Location Date Provider Diagnosis [facility] Dermatology [address] [address] 17 Sep, 2020 Leobardo Gisselgregoyr Pruritus L29.9 and Dermatiti s, unspecified L30.9 IMMUNIZATIONS No Information SOCIAL HISTORY Tobacco Use: [...] REASON FOR REFERRAL No Information VITAL SIGNS Weight 148.8 lbs Sep, Height 66 in Sep, BMI 24.01 kg/m2 Sep, Blood pressure systolic 116 mm Hg Sep, Blood pressure diastolic 78 mm Hg Sep, MEDICATIONS Medication SIG (Take, Route, Frequency, Duration) Notes Start Da te End Date Status Aspirin 81 Active Atorvastatin Calcium 40 MG 1 tablet Orally Once a day Active Progesterone 100 MG 1 capsules Do not take Bring capsule to appointment with you for 1 days Sep, Active Margy-D 24 Hour 180-240 MG 1 tablet Orally Once a day for 30 day(s) Active Omeprazole 40 MG Orally Active Biotin 10 MG 1 tablet Orally Once a day for 30 day(s) Active Calcium + D Active Daily Vitamin Active Folic Acid 400 MCG 1 tablet Orally Once a day for 30 day(s) Active Vitamin B Complex Active Escitalopram Oxalate 20 MG 1 tablet Oral Once a day Active HydrOXYzine HCl 25 MG 2 tablets Orally Active PROCEDURES No Information RESULTS No Results REASON FOR VISIT need to take Benadryl every day bc she says her body starts itching all over. MEDICAL (GENERAL) HISTORY Type Description Date Medical [...] No Information FUNCTIONAL STATUS No Information ASSESSMENTS Encounter Date Diagnosis Assessment Notes Treatment Notes Treatm ent Clinical Notes Sep, Pruritus (ICD-10 - L29.9) Will check labs at later date if patch testing doesnt show anything. Sep, Dermatitis, unspecified (ICD-10 - L30.9) Will set for patch testing and progesterone patch testing, patient aware. 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 Dermatitis, unspecified Will set for patch testing a nd progesterone patch testing, patient aware. 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 Next Appt Details For patch testing Reason: Provider Name:Leobardo Dozier, 2020-10 03:45:00 PM, [address] [place] [address], [phone], Provider Name:Leobardo Dozier, 2020-10 03:45:00 PM, [address] [place] [address], [phone], Provider Name:Leobardo Dozier, 2020-10 03:45:00 PM, [address] [place] [address], [phone], Insurance Providers Payer Name Payer Address Payer Phone Insured Name Patient Relati onship to Insured Coverage Start Date Coverage End Date [facility] CORPORATE CLAIMS DEPT [address] [facility] [phone] ANUPAM VILLAFANA self
--- OUTSIDE RECORDS SUMMARY | 2020-11-19 15:06 | CCD ---
Author Author [facility] Organization [facility] Address Unknown Phone Unavailable Care Team Providers Care Terminal Operator Name Role Phone Valerie, Emilia DO Unavailable Unavailable Valerie, Emilia DO Unavailable Unavailable Valerie, Emilia DO Unavailable Unavailable Valerie, Emilia DO Unavailable Unavailable Valerie, Emilia DO Unavailable Unavailable Valerie, Emilia DO Unavailable Unavailable Valerie, Emilia DO Unavailable Unavailable Valerie, Emilia DO Unavailable Unavailable Valerie, Emilia DO Unavailable Unavailable Valerie, Emilia DO Unavailable Unavailable Valerie, Emilia DO Unavailable Unavailable Valerie, Emilia DO Unavailable Unavailable Valerie, Emilia DO Unavailable Unavailable Valerie, Emilia DO Unavailable Unavailable Valerie, Emilia DO Unavailable Unavailable Valerie, Emilia DO Unavailable Unavailable Valerie, Emilia DO Unavailable Unavailable Valerie, Emilia DO Unavailable Unavailable Valerie, Emilia DO Unavailable Unavailable Valerie, Emilia DO Unavailable Unavailable Valerie, Emilia DO Unavailable Unavailable Valerie, Emilia DO Unavailable Unavailable Valerie, Emilia DO Unavailable Unavailable Valerie, Emilia DO Unavailable Unavailable Valerie, Emilia DO Unavailable Unavailable Valerie, Emilia DO Unavailable Unavailable Valerie, Emilia DO Unavailable Unavailable Valerie, Emilia DO Unavailable Unavailable Valerie, Emilia DO Unavailable Unavailable Valerie, Emilia DO Unavailable Unavailable Valerie, Emilia DO Unavailable Unavailable Valerie, Emilia DO Unavailable Unavailable Valerie, Emilia DO Unavailable Unavailable Valerie, Emilia DO Unavailable Unavailable Valerie, Emilia DO Unavailable Unavailable Valerie, Emilia DO Unavailable Unavailable Valerie, Emilia DO Unavailable Unavailable Valerie, Emilia DO Unavailable Unavailable Valerie, Emilia DO Unavailable Unavailable Valerie, Emilia DO Unavailable Unavailable Valerie, Emilia DO Unavailable Unavailable Valerie, Emilia DO Unavailable Unavailable Valerie, Emilia DO Unavailable Unavailable Valerie, Emilia DO Unavailable Unavailable Valerie, Emilia DO Unavailable Unavailable Valerie, Emilia DO Unavailable Unavailable Valerie, Emilia DO Unavailable Unavailable Valerie, Emilia DO Unavailable Unavailable Valerie, Emilia DO Unavailable Unavailable Valerie, Emilia DO Unavailable Unavailable Valerie, Emilia DO Unavailable Unavailable Valerie, Emilia DO Unavailable Unavailable Valerie, Emilia DO Unavailable Unavailable Valerie, Emilia DO Unavailable Unavailable Valerie, Emilia DO Unavailable Unavailable Valerie, Emilia DO Unavailable Unavailable Valerie, Emilia DO Unavailable Unavailable Valerie, Emilia DO Unavailable Unavailable Valerie, Emilia DO Unavailable Unavailable Valerie, Emilia DO Unavailable Unavailable Valerie, Emilia DO Unavailable Unavailable Valerie, Emilia DO Unavailable Unavailable Valerie, Emilia DO Unavailable Unavailable Valerie, Emilia DO Unavailable Unavailable Valerie, Emilia DO Unavailable Unavailable Valerie, Emilia DO Unavailable Unavailable Valerie, Emilia DO Unavailable Unavailable Valerie, Emilia DO Unavailable Unavailable Valerie, Emilia DO Unavailable Unavailable Valerie, Emilia DO Unavailable Unavailable Valerie, Emilia DO Unavailable Unavailable Valerie, Emilia DO Unavailable Unavailable Valerie, Emilia DO Unavailable Unavailable Valerie, Emilia DO Unavailable Unavailable Valerie, Emilia DO Unavailable Unavailable Valerie, Emilia DO Unavailable Unavailable Valerie, Emilia DO Unavailable Unavailable Valerie, Emilia DO Unavailable Unavailable Valerie, Emilia DO Unavailable Unavailable Valerie, Emilia DO Unavailable Unavailable Valerie, Emilia DO Unavailable Unavailable Valerie, Emilia DO Unavailable Unavailable Valerie, Emilia DO Unavailable Unavailable Valerie, Emilia DO Unavailable Unavailable Valerie, Emilia DO Unavailable Unavailable Valerie, Emilia DO Unavailable Unavailable Valerie, Emilia DO Unavailable Unavailable Valerie, Emilia DO Unavailable Unavailable Valerie, Emilia DO Unavailable Unavailable Valerie, Emilia DO Unavailable Unavailable Valerie, Emilia DO Unavailable Unavailable Valerie, Emilia DO Unavailable Unavailable Valerie, Emilia DO Unavailable Unavailable Valerie, Meilia DO Unavailable Unavailable Valerie, Emilia DO Unavailable Unavailable Valerie, Emilia DO Unavailable Unavailable Valerie, Emilia DO Unavailable Unavailable Valerie, Emilia DO Unavailable Unavailable Valerie, Emilia DO Unavailable Unavailable Valerie, Emilia DO Unavailable Unavailable Valerie, Emilia DO Unavailable Unavailable Valerie, Emilia DO Unavailable Unavailable Valerie, Emilia DO Unavailable Unavailable Valerie, Emilia DO Unavailable Unavailable Valerie, Emilia DO Unavailable Unavailable Valerie, Emilia DO Unavailable Unavailable Valerie, Emilia DO Unavailable Unavailable Valerie, Emilia DO Unavailable Unavailable Valerie, Emilia DO Unavailable Unavailable Valerie, Emilia DO Unavailable Unavailable Valerie, Emilia DO Unavailable Unavailable Valerie, Emilia DO Unavailable Unavailable Valerie, Emilia DO Unavailable Unavailable Valerie, Emilia DO Unavailable Unavailable Valerie, Emilia DO Unavailable Unavailable Valerie, Emilia DO Unavailable Unavailable Valerie, Emilia DO Unavailable Unavailable Valerie, Emilia DO Unavailable Unavailable Valerie, Emilia DO Unavailable Unavailable Valerie, Emilia DO Unavailable Unavailable Valerie, Emilia DO Unavailable Unavailable Valerie, Emilia DO Unavailable Unavailable Valerie, Emilia DO Unavailable Unavailable Valerie, Emilia DO Unavailable Unavailable Valerie, Emilia DO Unavailable Unavailable Valerie, Emilia DO Unavailable Unavailable Valerie, Emilia DO Unavailable Unavailable Valerie, Emilia DO Unavailable Unavailable Valerie, Emilia DO Unavailable Unavailable Valerie, Emilia DO Unavailable Unavailable Valerie, Emilia DO Unavailable Unavailable Valerie, Emilia DO Unavailable Unavailable Valerie, Emilia DO Unavailable Unavailable Valerie, Emilia DO Unavailable Unavailable Valerie, Emilia DO Unavailable Unavailable Valerie, Emilia DO Unavailable Unavailable Valerie, Emilia DO Unavailable Unavailable Valerie, Emilia DO Unavailable Unavailable Valerie, Emilia DO Unavailable Unavailable Valerie, Emilia DO Unavailable Unavailable Valerie, Emilia DO Unavailable Unavailable Valerie, Emilia DO Unavailable Unavailable Valerie, Emilia DO Unavailable Unavailable Valerie, Emilia DO Unavailable Unavailable Fish, B Vik HERNANDEZ Unavailable Unavailable Fish, B Vik HERNANDEZ Unavailable Unavailable Fish, B Vik HERNANDEZ Unavailable Unavailable Fish, B Vik HERNANDEZ Unavailable Unavailable Fish, B Vik HERNANDEZ Unavailable Unavailable Fish, B Vik HERNANDEZ Unavailable Unavailable Fish, B Vik HERNANDEZ Unavailable Unavailable Fish, B Vik HERNANDEZ Unavailable Unavailable Fish, B Vik HERNANDEZ Unavailable Unavailable Fish, B Vik HERNANDEZ Unavailable Unavailable Fish, B Vik HERNANDEZ Unavailable Unavailable Fish, B Vik HERNANDEZ Unavailable Unavailable Fish, B Vik HERNANDEZ Unavailable Unavailable Fish, B Vik HERNANDEZ Unavailable Unavailable Fish, B Vik HERNANDEZ Unavailable Unavailable Fish, B Vik HERNANDEZ Unavailable Unavailable Fish, B Vik HERNANDEZ Unavailable Unavailable Fish, B Vik HERNANDEZ Unavailable Unavailable Fish, B Vik HERNANDEZ Unavailable Unavailable Fish, B Vik HERNANDEZ Unavailable Unavailable Fish, B Vik HERNANDEZ Unavailable Unavailable Fish, B Vik HERNANDEZ Unavailable Unavailable Fish, B Vik HERNANDEZ Unavailable Unavailable Fish, B Vik HERNANDEZ Unavailable Unavailable Fish, B Vik HERNANDEZ Unavailable Unavailable Fish, B Vik HERNANDEZ Unavailable Unavailable Fish, B Vik HERNANDEZ Unavailable Unavailable Fish, B Vik HERNANDEZ Unavailable Unavailable Fish, B Vik HERNANDEZ Unavailable Unavailable Fish, B Vik HERNANDEZ Unavailable Unavailable Fish, B Vik HERNANDEZ Unavailable Unavailable Fish, B Vik HERNANDEZ Unavailable Unavailable Fish, B Vik HERNANDEZ Unavailable Unavailable Fish, B Vik HERNANDEZ Unavailable Unavailable Fish, B Vik HERNANDEZ Unavailable Unavailable Fish, B Vik HERNANDEZ Unavailable Unavailable Fish, B Vik HERNANDEZ Unavailable Unavailable Fish, B Vik HERNANDEZ Unavailable Unavailable Fish, B Vik HERNANDEZ Unavailable Unavailable Fish, B Vik HERNANDEZ Unavailable Unavailable Fish, B Vik HERNANDEZ Unavailable Unavailable Fish, B Vik HERNANDEZ Unavailable Unavailable Fish, B Vik HERNANDEZ Unavailable Unavailable Fish, B Vik HERNANDEZ Unavailable Unavailable Fish, B Vik HERNANDEZ Unavailable Unavailable Fish, B Vik HERNANDEZ Unavailable Unavailable Fish, B Vik HERNANDEZ Unavailable Unavailable Fish, B Vik HERNANDEZ Unavailable Unavailable Fish, B Vik HERNANDEZ Unavailable Unavailable Fish, B Vik HERNANDEZ Unavailable Unavailable Fish, B Vik HERNANDEZ Unavailable Unavailable Fish, B Vik HERNANDEZ Unavailable Unavailable Fish, B Vik HERNANDEZ Unavailable Unavailable [facility], JLAFLEUR Unavailable Unavailable Obradovic, Vladan Unavailable Unavailable Obradovic, Vladan Unavailable Unavailable Obradovic, Vladan Unavailable Unavailable Obradovic, Vladan Unavailable Unavailable Obradovic, Vladan Unavailable Unavailable Obradovic, Vladan Unavailable Unavailable Obradovic, Vladan Unavailable Unavailable Obradovic, Vladan Unavailable Unavailable Obradovic, Vladan Unavailable Unavailable Obradovic, Vladan Unavailable Unavailable Obradovic, Vladan Unavailable Unavailable Obradovic, Vladan Unavailable Unavailable Obradovic, Vladan Unavailable Unavailable Obradovic, Vladan Unavailable Unavailable Obradovic, Vladan Unavailable Unavailable Obradovic, Vladan Unavailable Unavailable Obradovic, Vladan Unavailable Unavailable Obradovic, Vladan Unavailable Unavailable Obradovic, Vladan Unavailable Unavailable Obradovic, Vladan Unavailable Unavailable Obradovic, Vladan Unavailable Unavailable Obradovic, Vladan Unavailable Unavailable Obradovic, Vladan Unavailable Unavailable Obradovic, Vladan Unavailable Unavailable Obradovic, Vladan Unavailable Unavailable Obradovic, Vladan Unavailable Unavailable Obradovic, Vladan Unavailable Unavailable Obradovic, Vladan Unavailable Unavailable Obradovic, Vladan Unavailable Unavailable Obradovic, Vladan Unavailable Unavailable Obradovic, Vladan Unavailable Unavailable Obradovic, Vladan Unavailable Unavailable Obradovic, Vladan Unavailable Unavailable Obradovic, Vladan Unavailable Unavailable Obradovic, Vladan Unavailable Unavailable Obradovic, Vladan Unavailable Unavailable Obradovic, Vladan Unavailable Unavailable Obradovic, Vladan Unavailable Unavailable Obradovic, Vladan Unavailable Unavailable Obradovic, Vladan Unavailable Unavailable Obradovic, Vladan Unavailable Unavailable Obradovic, Vladan Unavailable Unavailable Obradovic, Vladan Unavailable Unavailable Obradovic, Vladan Unavailable Unavailable Obradovic, Vladan Unavailable Unavailable Obradovic, Vladan Unavailable Unavailable LAROCK, Juana COREA TOE LINING CLOSER Unavailable Unavailable LAROCK, Juana COREA TOE LINING CLOSER Unavailable Unavailable LAROCK, Juana COREA TOE LINING CLOSER Unavailable Unavailable LAROCK, Juana COREA TOE LINING CLOSER Unavailable Unavailable LAROCK, Juana COREA TOE LINING CLOSER Unavailable Unavailable LAROCK, Juana COREA TOE LINING CLOSER Unavailable Unavailable LAROCK, Juana COREA TOE LINING CLOSER Unavailable Unavailable LAROCK, Juana COREA TOE LINING CLOSER Unavailable Unavailable LAROCK, Juana COREA TOE LINING CLOSER Unavailable Unavailable LAROCK, Juana COREA TOE LINING CLOSER Unavailable Unavailable LAROCK, Juana COREA TOE LINING CLOSER Unavailable Unavailable LAROCK, Juana COREA TOE LINING CLOSER Unavailable Unavailable LAROCK, Juana COREA TOE LINING CLOSER Unavailable Unavailable LAROCK, Juana COREA TOE LINING CLOSER Unavailable Unavailable LAROCK, Juana COREA TOE LINING CLOSER Unavailable Unavailable LAROCK, Juana COREA TOE LINING CLOSER Unavailable Unavailable LAROCK, Juana COREA TOE LINING CLOSER Unavailable Unavailable LAROCK, Juana COREA TOE LINING CLOSER Unavailable Unavailable LAROCK, Juana COREA TOE LINING CLOSER Unavailable Unavailable LAROCK, Juana COREA TOE LINING CLOSER Unavailable Unavailable LAROCK, Juana COREA TOE LINING CLOSER Unavailable Unavailable Re-disclosure Warning The records that you are about to access may contain information from federally-assisted alcohol or drug abuse programs. If such information is present, then the following federally mandated warning applies: This information has been disclosed to you from records protected by federal confidentiality rules (42 CFR part 2). The federal rules prohibit you from making any further disclosure of this information unless further disclosure is expressly permitted by the written consent of the person to whom it pertains or as otherwise permitted by 42 CFR part 2. A general authorization for the release of medical or other information is NOT sufficient for this purpose. The Federal rules restrict any use of the information to criminally investigate or prosecute any alcohol or drug abuse patient.The records that you are about to access may contain highly sensitive health information, the redisclosure of which is protected by Article 27-F of the [facility] Public Health law. If you continue you may have access to information: Regarding HIV / AIDS; Provided by facilities licensed or operated by the [facility] Office of Mental Health; or Provided by the [facility] Office for People With Developmental Disabilities. If such information is present, then the following [facility] mandated warning applies: This information has been disclosed to you from confidential records which are protected by state law. State law prohibits you from making any further disclosure of this information without the specific written consent of the person to whom it pertains, or as otherwise permitted by law. Any unauthorized further disclosure in violation of state law may result in a fine or long-term sentence or both. A general authorization for the release of medical or other information is NOT sufficient authorization for further disc losure. Family History Family Member Name Family Member Gender Family Member Status Date o f Status Description Data Source(s) Unknown Male Problem MEDENT ([facility]) Encounters Encounter Providers Location Date Indications Data Source(s ) O Attender: ANMOL YARELY MATHEW 10/19 05:48:12 PM EST - 11/11/2020 07:08:58 PM EST [facility] ([facility] ) [place] [address] [address] 11/08/2020 12:00:00 AM EST eCW1 ([facility]) Outpatient Attender: Vik Dutton MD Physical Therapy 10/03/2020 1 2:00:00 PM EST [facility] ([facility]) [place]patient [address] [address] 10/03/2020 12:00:00 AM EST eCW1 ([facility]) HN Dermatology [address] [place] [address] 08/08/2020 12:00:00 AM EDT eCW1 ([facility]) OFFICE OUTPATIENT NEW 30 MINUTES Attender: Vik Dutton MD Physic al Therapy 08/06/2020 09:30:00 AM EDT MEDENT ([facility]) Outpatient Attender: Emilia Calderon 06/06 08:40:00 AM EDT MEDENT ([facility] ) Outpatient Attender: Emilia Calderon 04/12 03:30:00 PM EDT MEDENT ([facility] ) Outpatient Referrer: Emilia Padilla DO 04/02/2020 09:15:00 AM EDT [facility] Outpatient Referrer: Emilia Padilla DO 04/02/2020 09:12:00 AM EDT [facility] Outpatient Referrer: Emilia Padilla DO 04/02/2020 09:10:00 AM EDT [facility] Outpatient Referrer: Emilia Padilla DO 04/02/2020 09:10:00 AM EDT [facility] Outpatient Referrer: Emilia Padilla DO 03/30/2020 09:54:00 AM EDT [facility] Outpatient Referrer: Emilia Padilla DO 03/26/2020 08:57:00 AM EDT [facility] Outpatient 03/26/2020 08:55:00 AM EDT [facility] Outpatient Attender: Emilia Calderon 03/22 02:45:00 PM EDT MEDENT ([facility] ) Outpatient Attender: Emilia Calderon 01/11 09:00:00 AM EDT MEDENT ([facility] ) [facility] [address] [place] [address] 01/08/2020 12:00:00 AM EDT eCW1 ([facility]) [facility]: [facility] 12/12/2019 02:19:01 PM EST [facility] Outpatient Attender: [facility] 12/12/2019 02:18:00 PM EST [facility] Outpatient 11/28/2019 03:12:00 PM EST [facility] Dermatology [address] [place] [address] 11/28/2019 12:00:00 AM EST eCW1 ([facility]) [facility] Dermatology [address] [place] [address] 11/27/2019 12:00:00 AM EST eCW1 ([facility]) [facility] Dermatology [address] [place] [address] 11/14/2019 12:00:00 AM EST [facility]CW[facility] [place] [address] [address] 10/06/2019 12:00:00 AM EST eCW1 ([facility]) [facility] Dermatology [address] [place] [address] 09/26/2019 12:00:00 AM EST eCW1 ([facility]) Inpatient<td>04/27/2019 - 04/28/2019</td ><td ID="[id number]">Hospital Encounter</td><td><paragraph>Med Surg Unit 4-1</paragraph><paragraph>[address]</paragraph><paragraph>[place] [address]</paragraph><paragraph>[phone]</paragraph></td><td><paragraph styleCode="Bold">Fern Umaña MD</paragraph><paragraph>[address] [place] [address]</paragraph><paragraph>[phone]</paragraph><paragraph>[place] [address]</paragraph><paragraph>[phone]</paragraph><paragraph> </paragraph></td><td></td> Attender: Fern UmañaAdmitter: Iker Umaña [id number] 04/27/2019 12:00:00 AM EDT - 04/28/2019 02:44:00 PM EDT [facility] Immunizations Vaccine Date Status Description Data Source(s) TB Skin test is not vaccine. 01/12/2020 09:21:00 AM EDT completed MEDENT ([facility]) Medications Medication Brand Name Start Date Product Form Dose Route Admi nistrative Instructions Pharmacy Instructions Status Indications Reaction Description Data Source(s) Progesterone 100 MG Progesterone 100 MG 10/03/2020 12:00:00 AM EST 1.0 {capsules} active Progesterone 100 MG e CW1 ([facility]) 875-125 mg 06/16/2020 12:00:00 AM EDT tablet 20 TAKE ONE TABLET BY MOUTH TWICE A DAY FOR 10 DAYS TAKE ONE TABLET BY MOUTH TWICE A DAY FOR 10 DAYS SOLD: 06/16/2020 [facility] 20 mg 06/16/2020 12:00:00 AM EDT tablet 10 TAKE TWO TABLETS BY MOUTH EVERY MORNING FOR 5 DAYS TAKE TWO TABLETS BY MOUTH EVERY MORNING FOR 5 DAYS FABIOLA [facility] atorvastatin 20 MG Oral Tablet Atorvastatin Calcium 04/12/2020 1 2:00:00 AM EDT ORAL active MEDENT ( [facility]) PPD 01/12/2020 12:00:00 AM EDT completed MEDENT ([facility]) Medication administered onsite Sulfamethoxazole 800 MG / Trimethoprim 1 60 MG Oral Tablet [Bactrim] Bactrim DS 800-160 MG Bactrim DS 800-160 MG 01/08/2020 12:00:00 AM EDT active 1 tablet eCW1 ([facility]) Phenazopyridine hydrochloride 100 MG Oral Tablet [Pyri dium] Pyridium 100 MG Pyridium 100 MG 01/08/2020 12:00:00 AM EDT active 1 tab eCW1 ([facility]) 25 mg 06/21/2019 12:00:00 AM EDT tablet 90 TAKE ONE TABLET BY MOUTH THREE TIMES A DAY NEEDED FOR ANXIETY TAKE ONE TABLET BY MOUTH THREE TIMES A D AY NEEDED FOR ANXIETY SOLD: 09/23/2019 [facility] 25 mg 06/21/2019 12:00:00 AM EDT tablet 90 TAKE ONE TABLET BY MOUTH THREE TIMES A DAY NEEDED FOR ANXIETY TAKE ONE TABLET BY MOUTH THREE TIMES A D AY NEEDED FOR ANXIETY SOLD: 10/26/2019 [facility] Vitamin B 12 0.5 MG Oral Tablet cyanocob alamin ([facility] VITAMIN B-12) 500 MCG tablet cyanocobalamin ([facility] VITAMIN B-12) 500 MCG tablet 04/28/2019 12:0 0:00 AM EDT 1000 ug Oral active Take 2 tablets (1,000 mc g total) by mouth daily [facility] Multiple Vitamins-Minerals (MULTIVITAMIN WITH MINERALS ) tablet Multi- Vitamin/Minerals Po Tabs 04/28/2019 12:00:00 AM EDT 2 {tbl} Oral active Take 2 tablets by mouth daily [facility] Insurance Providers Payer name Policy type / Coverage type Policy ID Covered alliance party ID Covered alliance party's relationship to shields Policy Shields Plan Information [employer]. [id number] Self [id number] [facility] [id number] SP [id number] [place] O [id number] S [id number] Managed Care [place] P [id number] S [id number] Medicaid S [id number] S [id number] [place] MEDICAID PI PI [facility] MEDICAID [id number] Tessie 7 [id number] G[place] I [id number] Self [id number] [place] Medicaid Commercial [id number] 00 Self [id number] [employer] Medigap Part B [id number] Self [id number] [place] Medicaid Commercial [id number] 00 Self [id number] [place] Medicaid Commercial [id number] 00 Self [id number] ANSI-Commercial [id number] [place] [facility] Medicaid Commercial [id number] 00 Self [id number] ANSI-Commercial [id number] [place] Care Medicaid Commercial [id number] 00 Self [id number] [place] [id number] SP [id number] ANSI-Commercial [id number] ANSI-Commercial [id number] [place] Medicaid Commercial [id number] 00 Self [id number] 00 [place] Care Medicaid Commercial [id number] 00 Self [id number] MEDICAID [id number] SP [id number] GERALD [id number] SP [id number] [place] I [id number] Self [id number] [place] CARE HEA [id number] S [id number] [facility] O [id number] S [id number] YONNY PREFERRED BLUE [id number] SP [id number] SELF PAY UNAVAILABLE SP UNAVAILA BLE UNHC COMMUNITY PLAN MCDHMO [id number] SP [id number] BLUE [place] [place] PLAN [id number] SP [id number] EXCELLUS BCBS P [id number] S [id number] HMO BLUE [id number] SP [id number] NO FAULT S [id number] S [id number] NO FAULT [id number] SP [id number] Surgeries/Procedures Procedure Description Date Indications Data Source(s) MRI Upper Extremity Any Joint 09/26/2020 12:00:00 AM Joan BARRIOS ([facility]) URINE-NO MICRO 01/08/2020 12:00:00 AM EDT eCW1 ([facility]) URINE TEST 01/08/2020 12:00:00 AM EDT eCW1 ([facility]) EXC H-F-NK-SP B9 NO 0.6-1 11/14/2019 12:00:00 AM EST eCW1 ([facility]) EXC H-F-NK-SP B9 NO 1.1-2 11/14/2019 12:00:00 AM EST eCW1 ([facility]) INTMD RPR S/A/T/EXT 2.5 CM/< 11/14/2019 12:00:00 AM ES T eCW1 ([facility]) Results ID Date Data Source [id number] 11/11/2020 02:00:00 PM EST [facility] Name Value Range Interpretation Code Description Data Aura rce(s) Supporting Document(s) SARS coronavirus 2 RNA Not Detected [facility] [place] This lab was ordered by [facility] and reported by [facility]. ID Date Data Source [id number] 11/11/2020 12:00:00 AM EST [facility] Name Value Range Interpretation Code Description Data Aura rce(s) Supporting Document(s) Carestart Rapid COVID Antigen Test Positive [facility] This lab was reported by [facility] brittanie. ID Date Data Source [id number] 11/07/2020 12:00:00 AM EST [facility] Name Value Range Interpretation Code Description Data Aura rce(s) Supporting Document(s) SARS coronavirus 2 Ag Negative [facility] This lab was ordered by [facility] and reported by [facility]. ID Date Data Source [id number] 11/04/2020 02:00:00 PM EST [facility] Name Value Range Interpretation Code Description Data Aura rce(s) Supporting Document(s) SARS coronavirus 2 RNA Not Detected [facility] [place] This lab was ordered by [facility] and reported by [facility]. ID Date Data Source [id number] 10/31/2020 12:00:00 AM EST [facility] Name Value Range Interpretation Code Description Data Aura rce(s) Supporting Document(s) SARS-CoV2 Rapid Antigen Negative [facility] This lab was ordered by [facility] and reported by [facility]. ID Date Data Source [id number] 10/28/2020 03:00:00 PM EST [facility] Name Value Range Interpretation Code Description Data Aura rce(s) Supporting Document(s) SARS coronavirus 2 RNA Not Detected [facility] [place] This lab was ordered by [facility] and reported by [facility]. ID Date Data Source [id number] 10/21/2020 02:00:00 PM EST [facility] Name Value Range Interpretation Code Description Data Aura rce(s) Supporting Document(s) SARS coronavirus 2 RNA Not Detected [facility] [place] This lab was ordered by [facility] and reported by [facility]. ID Date Data Source [id number] 2020 06:30:00 AM EST [facility] Name Value Range Interpretation Code Description Data Aura rce(s) Supporting Document(s) SARS coronavirus 2 RNA [facility] This lab was ordered by [facility] and reported by [facility]. ID Date Data Source [id number] 10/07/2020 02:13:00 PM EST [facility] Name Value Range Interpretation Code Description Data Aura rce(s) Supporting Document(s) SARS coronavirus 2 RNA [facility] This lab was ordered by [facility] and reported by [facility]. ID Date Data Source [id number] 09/23/2020 12:43:00 PM EST [facility] Name Value Range Interpretation Code Description Data Aura rce(s) Supporting Document(s) SARS coronavirus 2 RNA [facility] This lab was ordered by [facility] and reported by [facility]. ID Date Data Source [id number] 09/16/2020 02:02:00 PM EST [facility] Name Value Range Interpretation Code Description Data Aura rce(s) Supporting Document(s) SARS coronavirus 2 RNA [facility] This lab was ordered by [facility] and reported by [facility]. ID Date Data Source [id number] 09/09/2020 09:00:00 AM EST [facility] Name Value Range Interpretation Code Description Data Aura rce(s) Supporting Document(s) SARS coronavirus 2 RNA [facility] This lab was ordered by [facility] and reported by [facility]. ID Date Data Source [id number] 09/02/2020 02:15:00 PM EST [facility] Name Value Range Interpretation Code Description Data Aura rce(s) Supporting Document(s) SARS coronavirus 2 RNA [facility] This lab was ordered by [facility] and reported by [facility]. ID Date Data Source [id number] 08/26/2020 03:00:00 PM EST [facility] Name Value Range Interpretation Code Description Data Aura rce(s) Supporting Document(s) SARS coronavirus 2 RNA [facility] This lab was ordered by [facility] and reported by [facility]. ID Date Data Source [id number] 08/19/2020 02:00:00 PM EST [facility] Name Value Range Interpretation Code Description Data Aura rce(s) Supporting Document(s) SARS coronavirus 2 RNA [facility] This lab was ordered by [facility] and reported by [facility]. ID Date Data Source [id number] 08/12/2020 08:00:00 AM EDT [facility] Name Value Range Interpretation Code Description Data Aura rce(s) Supporting Document(s) SARS coronavirus 2 RNA [facility] This lab was ordered by [facility] and reported by [facility]. ID Date Data Source [id number] 08/05/2020 02:38:00 PM EDT [facility] Name Value Range Interpretation Code Description Data Aura rce(s) Supporting Document(s) SARS coronavirus 2 RNA [facility] This lab was ordered by [facility] and reported by [facility]. ID Date Data Source [id number] 07/31/2020 09:29:48 AM EDT [facility] INFORMATIONPatient MRN Name Date of Age Gend*PT [id number] Sury Villafana 1980 39 years F IPPT Location Admission Date/Time Visit ID Attending [id number] 04/27/19 0827 --- --- EPI ID CSN Admitting Provider [id number] Fern Umaña MD([id number]) Attestation signed by Fern Umaña MD at 07/31/2020 9:29 AMI agree with medical decision making.Signature: SAMEERA Pathakate: July 31, 2020Time: 9:29 AM Discharge SummarySury Villafana date: 04/27/2019 8:27 AM Primary Care Provider: Steve CARMONAitting Physician: Alaina Pathak Diagnosis: Post-Op Diagnosis Codes: * Morbid obesity [E66.01]Secondary Diagnoses:Past Medical History:Diagnosis Date Anxiety Depression GERD (gastroesophageal reflux disease) Hyperlipidemia Hypertension Morbid obesity TIA (transient ischemic attack) 01/2014 " stress induce"Surgical Procedures performed on 04/27/2019 by Fern Umaña MD Procedure(s): CREATION, GASTRIC BYPASS,SUREKHA-EN Y,XI ROBOT- ASSISTED,LAPAROSCOPICASSISTED,LIVER BIOPSY Post-Op Diagnosis Codes: * Morbid obesity [E66.01]Secondary Procedures:None.Indication for Admission:Sury Villafana is a 38 years female who suffers from morbid obesity.Her current weight and height are :Wt Readings from Last 1 Encounters:04/27/19 98 kg (216 lb)Ht Readings from Last 1 Encounters:04/27/19 1.676 m (5' 6")Giving her a Body mass index is 34.86 kg/m .; therefore, Sury Villafana metthe criteria for weight loss surgery as defined in the NIH consensus statement,and surgery was medically necessary.Hospital Course: The patient underwent above listed procedure on 04/27/2019 byDr. Fern Umaña. There were no intraoperative complications andpostoperatively She was transferred to the floor in stable condition. Therewere no postoperative issues. Up on the floor She was given sips of water anddilute juice to drink. She also ambulated and used the incentive spirometerappropriately. She had no difficulties voiding. She had adequate pain controlas well with simethicone and tylenol. At the time of discharge, Accuchecks andblood pressure were normal. She was tolerating 4 oz of fluid consistentlywithout nausea. Patient was deemed appropriate for discharge home per MD.Patient was given post-op instructions and expressed understanding. They weregiven warning signs and symptoms to call the office with.She received extensive education on medications to take at home as well as dieteducation. She showed very good understanding and agreement with the dischargeplan.Most recent glucose:Glucose, POCDate Value Ref Range [id number]/28/2019 116 (H) 70 - 99 mg/dL Final Comment: PERFORMED BY [facility]ICAL STAFFDischarge instructions were reviewed in person and provided to the patient inprinted form as well. Sury Villafana knows to call is there are any problemsDischarge Exam:Vitals: Temp: [98.1 F-98.7 F] 98.1 FHeart Rate: [70-85] 71Resp: [16-20] 16BP: (95-135)/(50-76) 133/76General: Laying in bed comfortably, in NADHeart: RRRLungs: Non-laboredAbd: Soft, non- distended, appropriately tender, incisions C/D/IExt: Calves non-tender to palpationDischarged Condition:goodDisposition: Home or Self CareFollow-up:Fern Umaña MD as scheduled in the office.Medications: Alexia Villafana Medication Instructions DANNY:[id number] Printed on:04/28/19 1983Medication Informationacetaminophen (TYLENOL) 325 MG tabletTake 2 tablets (650 mg total) by mouth every 6 (six) hours as needed for painatorvastatin (LIPITOR) 40 MG tabletTake 40 mg by mouth dailycyanocobalamin ([employer] VITAMIN B-12) 500 MCG tabletTake 2 tablets (1,000 mcg total) by mouth dailyenoxaparin (LOVENOX) 40 MG/0.4ML SOLNInject 0.4 mL (40 mg total) under the skin daily for 10 daysescitalopram (LEXAPRO) 20 MG tabletTake 20 mg by mouth dailyMultiple Vitamins-Minerals (MULTIVITAMIN WITH MINERALS) tabletTake 2 tablets by mouth dailyomeprazole (PRILOSEC) 40 MG capsuleTake 1 capsule (40 mg total) by mouth dailyondansetron (ZOFRAN-ODT) 4 MG disintegrating tabletTake 1 tablet (4 mg total) by mouth every 6 (six) hours as needed for nauseasimethicone (MYLICON) 80 MG chewable tabletChew 1 tablet (80 mg total) every 6 (six) hours as needed for flatulencevalsartan (DIOVAN) 40 MG tabletTake 40 mg by mouth daily Inez Dockery, PA191:53 PM Name Value Range Interpretation Code Description Data Aura rce(s) Supporting Document(s) ID Date Data Source [id number] 07/29/2020 05:45:00 AM EDT [facility] Name Value Range Interpretation Code Description Data Aura rce(s) Supporting Document(s) SARS coronavirus 2 RNA [facility] This lab was ordered by [facility] and reported by [facility]. ID Date Data Source [id number] 07/22/2020 06:00:00 AM EDT [facility] Name Value Range Interpretation Code Description Data Aura rce(s) Supporting Document(s) SARS coronavirus 2 RNA [facility] This lab was ordered by [facility] and reported by [facility]. ID Date Data Source [id number] 07/15/2020 08:00:00 AM EDT [facility] Name Value Range Interpretation Code Description Data Aura rce(s) Supporting Document(s) SARS coronavirus 2 RNA [facility] This lab was ordered by [facility] and reported by [facility]. ID Date Data Source [id number] 07/08/2020 06:30:00 AM EDT [facility] Name Value Range Interpretation Code Description Data Aura rce(s) Supporting Document(s) SARS coronavirus 2 RNA [facility] This lab was ordered by [facility] and reported by [facility]. ID Date Data Source [id number] 07/01/2020 05:30:00 AM EDT [facility] Name Value Range Interpretation Code Description Data Aura rce(s) Supporting Document(s) SARS coronavirus 2 RNA [facility] This lab was ordered by [facility] and reported by [facility]. ID Date Data Source [id number] 06/26/2020 06:00:00 AM EDT [facility] Name Value Range Interpretation Code Description Data Aura rce(s) Supporting Document(s) SARS coronavirus 2 RNA [facility] This lab was ordered by [facility] and reported by [facility]. ID Date Data Source [id number] 06/17/2020 06:24:00 AM EDT [facility] Name Value Range Interpretation Code Description Data Aura rce(s) Supporting Document(s) SARS coronavirus 2 RNA [facility] This lab was ordered by [facility] and reported by [facility]. ID Date Data Source [id number] 06/10/2020 08:17:00 AM EDT [facility] Name Value Range Interpretation Code Description Data Aura rce(s) Supporting Document(s) SARS coronavirus 2 RNA [facility] This lab was ordered by [facility] and reported by [facility]. ID Date Data Source [id number] 04/04/2020 08:13:00 AM EDT [facility] ([facility]) Name Value Range Interpretation Code Description Data Aura rce(s) Supporting Document(s) Cortisol [Mass/volume] in Serum or Plasma --AM peak specimen 17.3 ug/dL 4.3-22.4 [facility] ([facility]) C peptide [Mass/volume] in Serum or Plasma 3.1 ng/mL 1.1-4.4 [facility] ([facility]) C-Peptide reference interval is for fast ing patients. Insulin [Units/volume] in Serum or Plasma 10.4 uIU/mL 2.6-24.9 [facility] ([facility]) Performed at: - [facility] [address] [id number] Central Station Operator: Smita Arias MD, Phone: [phone] ID Date Data Source [id number] 04/02/2020 12:00:00 AM EDT [facility] Emilia Padilla DO Patient Name: SURY VILLAFANA[age] [facility] Date of : 1980[address] Date of Exam: 04/02/2020JIMMIE Joseph [id number]#: Fax: [phone] EXAM: CT ABDOMEN & PELVIS WITH CONTRASTCLINICAL INFORMATION: Abdominal pain.Low dose [address] scanning of the abdomen and pelvis wasobtained after the administration of intravenous contrast using 3 mmincrements and reconstructed in both sagittal and coronal scan planes.Immediate and delayed post contrast enhanced imaging was obtained throughthe abdomen. 75 cc of Optiray 350 was administered intr avenously.Comparison: Multiples, the latest 11/18/2019.The lung bases are clear and unchanged.The liver, spleen, pancreas, adrenal glands, and kidneys are again seen margoth within normal limits. The abdominal aorta and paraaortic regions areagain seen to be within normal limits. The intraabdominal and intrapelvicbowel loops and the mesenteries are within normal limits. There is no freefluid or free air in the abdomen or pelvis. There is no evidence of anintraabdominal or intrapelvic mass or adenopathy.Bone window technique throughout the examination shows the osseousstructures to be stable and inta ct.IMPRESSION:CT findings are within normal limits.Accredited by the [employer] in [place].CAROLE Ware/Jose you for referring SURY VILLAFANA to our office. Electronically Signed - BACILIO BELL DO 04/03/20 13:24 Name Value Range Interpretation Code Description Data Aura rce(s) Supporting Document(s) ID Date Data Source [id number] 03/22/2020 03:07:00 PM EDT [facility] ([facility]) Name Value Range Interpretation Code Description Data Aura rce(s) Supporting Document(s) C peptide [Mass/volume] in Serum or Plasma 7.9 ng/mL 1.1-4.4 [facility] ([facility]) C-Peptide reference interval is for fast ing patients. Insulin [Units/volume] in Serum or Plasma 45.8 uIU/mL 2.6-24.9 [facility] ([facility]) Performed at: RN - [facility] [address] [id number] Central Station Operator: Smita Arias MD, Phone: [phone] Cortisol [Mass/volume] in Serum or Plasma --PM trough specim en 11.4 ug/dL 3.1-16.7 [facility] ([facility]) ID Date Data Source [id number] 03/22/2020 03:05:00 PM EDT [facility] ([facility]) Name Value Range Interpretation Code Description Data Aura rce(s) Supporting Document(s) Thyrotropin [Units/volume] in Serum or Plasma by Detec tion limit <= 0.05 mIU/L 1.22 uIU/mL 0.36-3.74 [facility] ([facility] ) ID Date Data Source [id number] 03/22/2020 03:05:00 PM EDT [facility] ([facility]) Name Value Range Interpretation Code Description Data Aura rce(s) Supporting Document(s) Glucose [Mass/volume] in Serum or Plasma 146 mg/dL 74-99 [facility] ([facility]) 100-125 mg/dL PRE-DIABETES/FASTING >126 mg/dL DIABETES/FASTING Urea nitrogen [Mass/volume] in Serum or Plasma 11 mg/dL 7-18 [facility] ([facility]) Potassium [Moles/volume] in Serum or Plasma 4.0 meq/L 3.5-5.1 [facility] ([facility]) Sodium [Moles/volume] in Serum or Plasma 141 meq/L 136-145 [facility] ([facility]) Creatinine 0.9 mg/dL 0.6-1.3 [facility] ([facility]) Chloride [Moles/volume] in Serum or Plasma 108 meq/L 98-107 [facility] Carbon dioxide, total [Moles/volume] in Serum or Plasma 25 meq/L 21 -32 [facility] ([facility]) Calcium [Mass/volume] in Serum or Plasma 8.3 mg/dL 8.5-10.1 [facility] ([facility]) Alkaline phosphatase isoenzyme [Units/volume] in Serum or Pl asma 72 mg/dL 46-116 [facility] ([facility]) Total Bilirubin 0.3 mg/dL 0.2-1.0 [facility] ([facility]) Aspartate aminotransferase [Enzymatic activity/volume] in Serum or Plasma 19 U/L 15-37 [facility] ([facility] ) Albumin [Mass/volume] in Serum or Plasma 3.7 g/dL 3.4-5.0 [facility] ([facility]) Alanine aminotransferase [Enzymatic activity/volume] in Seru m or Plasma 25 U/L 12-78 [facility] ([facility]) A/G Ratio 1.28 CALC 1.00-1.90 [facility]) Proteinase 3 Ab [Units/volume] in Serum 6.6 g/dL 6.4-8.2 [facility] ([facility]) Glomerular filtration rate/1.73 sq M pre dicted among blacks [Volume Rate/Area] in Serum or Plasma by Creatinine-based formula (MDRD) Laboratory test result [facility] <content>CHRONIC KIDNEY DISEASE STAGING PER NK[facility]</content>
<content></content>
<content>STAGE I & II GFR >= 60 NORMAL TO MILDLY DECREASED</content>
<content>STAGE III GFR 30-59 MODERATELY DECREASED</content>
<content>STAGE IV GFR 15-29 SEVERELY DECREASED</content>
<content>STAGE V GFR <15 VERY LITTLE GFR LEFT</content>
<content>ESRD GFR <15 ON STRAIGHT KNIFE CUTTER MACHINE</content>
<content></content> Glomerular filtration rate/1.73 sq M pre dicted among non-blacks [Volume Rate/Area] in Serum or Plasma by Creatinine-based formula (MDRD) Laboratory test result [facility] ID Date Data Source [id number] 03/22/2020 03:05:00 PM EDT [facility] Name Value Range Interpretation Code Description Data Aura rce(s) Supporting Document(s) Hemoglobin A1c/Hemoglobin.total in Blood 5.4 g/dL 4.8-5.6 [facility] Lab Result Notes: Pre-Diabetes 5.7 - 6.4 % Diabetes = or > 6.5% Glucose mean value [Mass/volume] in Blood Estimated fr om glycated hemoglobin 108 mg/dL 60-110 [facility] ID Date Data Source [id number] 03/22/2020 03:05:00 PM EDT [facility] Name Value Range Interpretation Code Description Data Aura rce(s) Supporting Document(s) Hemoglobin A1c/Hemoglobin.total in Blood Laboratory test result [facility] ([facility]) ID Date Data Source [id number] - CHLAMYDIA, GC & TRICH AMP (Microbiology) 01/08/2020 12:00:00 AM EDT [facility] ([facility]) Name Value Range Interpretation Code Description Data Aura rce(s) Supporting Document(s) NOT DETECTED NEGATIVE Trichomonas vaginalis ( AMP) [facility] ([facility]) ID Date Data Source [id number] 11/18/2019 01:46:00 PM EST [facility] Name Value Range Interpretation Code Description Data Aura rce(s) Supporting Document(s) Reflex Urine Culture Laboratory test result [facility] ([facility]) FULL REPORT IN LAB NOTES ([facility] and [facility] ). NO GROWTH ID Date Data Source [id number] 11/18/2019 01:46:00 PM EST [facility] Name Value Range Interpretation Code Description Data Aura rce(s) Supporting Document(s) Lipoprotein lipase [Enzymatic activity/volume] in Serum or P lasma 100 U/L 73-393 [facility] ([facility]) ID Date Data Source [id number] 11/18/2019 01:46:00 PM EST [facility] ([facility]) Name Value Range Interpretation Code Description Data Aura rce(s) Supporting Document(s) Blood Urea Nitrogen 7 mg/dL 7-18 [facility] ([facility]) Glucose, Fasting 70 mg/dL 70-100 [facility] ([facility]) Creatinine For GFR 0.70 mg/dL 0.55-1.30 [facility] ([facility]) Sodium Level 144 meq/L 136-145 [facility] ([facility]) Glomerular Filtration Rate Laboratory test result [facility] ([facility]) <content>Units are mL/min/1.73 m2</content>
<content></content>
<content>Chronic Kidney Disease Staging per NKF:</content>
<content></content>
<content>Stage I & II GFR >=60 Normal to Mildly Decreased</content>
<content>Stage III GFR 30-59 Moderately Decreased</content>
<content>Stage IV GFR 15-29 Severely Decreased</content>
<content>Stage V GFR <15 Very Little GFR Left</content>
<content>ESRD GFR <15 on STRAIGHT KNIFE CUTTER MACHINE</content>
<content></content> Potassium Serum 4.3 meq/L 3.5-5.1 [facility] ([facility]) Anion Gap 5 meq/L 8-16 [facility]) Calcium Level 8.7 mg/dL 8.5-10.1 [facility] ([facility]) Carbon Dioxide Level 28 meq/L 21-32 [facility] ([facility]) Chloride Level 111 meq/L 98-107 [facility] ([facility]) ID Date Data Source [id number] 11/18/2019 01:46:00 PM EST [facility] ([facility]) Name Value Range Interpretation Code Description Data Aura rce(s) Supporting Document(s) Alkaline Phosphatase 79 U/L 45-117 [facility] ([facility]) Ast/Sgot 18 U/L 7-37 [facility] ([facility]) Alt/SGPT 21 U/L 12-78 [facility] ([facility]) Bilirubin,Direct 0.1 mg/dL 0.0-0.2 [facility] Bilirubin,Total 0.3 mg/dL 0.2-1.0 [facility] Albumin 3.7 GM/DL 3.2-5.2 [facility] ([facility]) Total Protein 6.3 GM/DL 6.4-8.2 [facility] ([facility]) Albumin/Globulin Ratio 1.42 1.00-1.93 [facility] ID Date Data Source [id number] 11/18/2019 01:46:00 PM EST [facility] ([facility]) Name Value Range Interpretation Code Description Data Aura rce(s) Supporting Document(s) Appearance, Urine RFX Laboratory test result [facility] ([facility]) Color, Urine RFX Laboratory test result [facility] ([facility]) PH,Urine RFX 6.0 units 5.0-9.0 [facility] ([facility]) Specific [place] Ur Auto RFX 1.004 1.002-1.035 [facility] Protein, Urine Auto RFX Laboratory test result [facility] [facility] Urobilinogen, Urine Auto RFX 2.0 mg/dL 0.0-2.0 [facility] Ketone, Urine Auto RFX Laboratory test result [facility] ([facility]) Glucose, Urine (Ua) Auto RFX Laboratory test result [facility] ([facility]) Nitrite, Urine Auto RFX Laboratory test result [facility] ([facility]) Bilirubin, Urine Auto RFX Laboratory test result [facility] ([facility]) Leukocyte Esterase Ur Auto RFX Laboratory test result [facility] ([facility]) WBC, Urine Auto RFX 0 /HPF 0-3 [facility] ([facility]) Blood, Urine Blood RFX Laboratory test result [facility] ([facility]) Squam Epithelial Cell Ur Aurfx 0 /HPF 0-6 [facility] ([facility]) Bacteria, Urine Auto RFX Laboratory test result [facility] ([facility]) RBC, Urine Auto RFX 1 /HPF 0-3 [facility] ([facility]) Mucus, Urine RFX Laboratory test result [facility] ([facility]) Hyaline Cast, Urine Auto RFX 0 /LPF 0-1 [facility] ([facility]) ID Date Data Source [id number] 11/18/2019 01:46:00 PM EST [facility] ([facility]) Name Value Range Interpretation Code Description Data Aura rce(s) Supporting Document(s) Hemoglobin 12.5 g/dL 12.0-15.5 [facility] ([facility]) White Blood Count 8.9 10 4.0-10.0 [facility] ([facility]) Red Blood Count 4.07 10 4.00-5.40 [facility] ([facility]) Mean Corpuscular Volume 95.1 fl 80.0-96.0 [facility] ([facility]) Hematocrit 38.7 % 36.0-47.0 [facility] ([facility]) Mean Corpuscular Hemoglobin 30.7 pg 27.0-33.0 [facility] ([facility]) Mean Corpuscular HGB Conc 32.3 g/dL 32.0-36.5 [facility] ([facility]) Red Cell Distribution Width 12.4 % 11.5-14.5 [facility] ([facility]) Neutrophils % 58.0 % 36.0-66.0 [facility] ([facility]) Platelet Count, Automated 235 10 150-450 [facility] ([facility]) Lymph % 30.0 % 24.0-44.0 [facility] [facility]) Eos % 2.2 % 0.0-3.0 [facility] [place] [facility]) Christian % 9.0 % 0.0-5.0 [facility] [facility]) Immature Granulocyte % 0.4 % 0-3.0 [facility] ([facility]) Baso % 0.4 % 0.0-1.0 [facility] [facility] Nucleated Red Blood Cell % 0.0 % 0-0 [facility] ([facility]) Lymph # 2.7 10 1.5-5.0 [facility] [facility]) Neutrophils # 5.1 10 1.5-8.5 [facility] ([facility]) Christian # 0.8 10 0.0-0.8 [facility] [facility] Eos # 0.2 10 0.0-0.5 [facility] [facility] Baso # 0.0 10 0.0-0.2 [facility] [facility] Procedure Social History Code Duration Value Status Description Data Source(s ) Smoking 10/03/2020 12:00:00 AM EST Current Smoker completed Curre nt Smoker eC1 ([facility] [facility] Smoking 10/03/2020 12:00:00 AM EST Current Smoker completed Curre nt Smoker eC1 ([facility]) Vital Signs ID Date Data Source UNK Name Value Range Interpretation Code Description Data Source(s) Diastolic blood pressure 78 mm[Hg] 78 mm[Hg] W1 ([facility]) Systolic blood pressure 116 mm[Hg] 116 mm[Hg] e CW1 ([facility]) Body mass index (BMI) [Ratio] 24.01 kg/m2 24.01 kg/m2 [facility] ([facility]) Body height 66 [in_i] 66 [in_i] W1 ([facility]) Body weight 148.8 [lb_av] 148.8 [lb_av] W ([facility]) Body mass index (BMI) [Ratio] 24.0 kg/m2 24.0 k g/m2 MEDENT ([facility]) Body weight 144.00 [lb_av] 144.00 [lb_av] MEDEN T ([facility]) Body height 65 [in_i] 65 [in_i] MEDENT ([facility]) 5'5" Heart rate 68 /min 68 /min MEDENT ([facility]) Diastolic blood pressure 72 mm[Hg] 72 mm[Hg] [facility] Systolic blood pressure 100 mm[Hg] 100 mm[Hg] [facility] ([facility]) Body mass index (BMI) [Ratio] 24.0 kg/m2 24.0 k g/m2 [facility] Body weight 144.00 [lb_av] 144.00 [lb_av] MEDEN T ([facility]) Body height 65 [in_i] 65 [in_i] MEDENT ([facility]) 5'5" Heart rate 66 /min 66 /min MEDENT ([facility]) Diastolic blood pressure 60 mm[Hg] 60 mm[Hg] [facility] ([facility]) Systolic blood pressure 110 mm[Hg] 110 mm[Hg] [facility] ([facility]) Body mass index (BMI) [Ratio] 23.5 kg/m2 23.5 k g/m2 [facility] ([facility]) Oxygen saturation in Arterial blood by Pulse oximetry 97 % 97 % [facility] RM Air Body weight 141.00 [lb_av] 141.00 [lb_av] MEDEN T ([facility]) Body height 65 [in_i] 65 [in_i] MEDENT ([facility]) 5'5" Heart rate 76 /min 76 /min MEDENT ([facility]) Diastolic blood pressure 56 mm[Hg] 56 mm[Hg] [facility] Systolic blood pressure 100 mm[Hg] 100 mm[Hg] [facility] ([facility]) Body mass index (BMI) [Ratio] 24.0 kg/m2 24.0 k g/m2 [facility] ([facility]) Oxygen saturation in Arterial blood by Pulse oximetry 98 % 98 % [facility] ([facility]) RM Air Body weight 144.00 [lb_av] 144.00 [lb_av] MEDEN T ([facility]) Body height 65 [in_i] 65 [in_i] MEDENT ([facility]) 5'5" Heart rate 82 /min 82 /min MEDENT ([facility]) Diastolic blood pressure 60 mm[Hg] 60 mm[Hg] MEDENT ([facility]) Systolic blood pressure 120 mm[Hg] 120 mm[Hg] M EDENT ([facility]) Diastolic blood pressure 73 mm[Hg] 73 mm[Hg] eCW1 ([facility]) Systolic blood pressure 121 mm[Hg] 121 mm[Hg] e CW1 ([facility]) Body temperature [degF] eCW1 ([facility]) Respiratory rate 16 /min 16 /min eCW1 ([facility]) Heart rate 83 /min 83 /min eCW1 ([facility]) Body mass index (BMI) [Ratio] 23.24 kg/m2 23.24 kg/m2 W1 ([facility]) Body height 66 [in_us] 66 [in_us] eCW1 ([facility]) Body weight Measured 144 [lb_av] 144 [lb_av] eC W1 ([facility]) Diastolic blood pressure 62 mm[Hg] 62 mm[Hg] eCW1 ([facility]) Systolic blood pressure 104 mm[Hg] 104 mm[Hg] e CW1 ([facility]) Body temperature 97.3 [degF] 97.3 [degF] eCW1 ( [facility]) Respiratory rate 18 /min 18 /min eCW1 ([facility]) Heart rate 77 /min 77 /min eCW1 ([facility]) Body mass index (BMI) [Ratio] 24.78 kg/m2 24.78 kg/m2 W1 ([facility]) Body height 65.5 [in_us] 65.5 [in_us] eCW1 ([facility]) Body weight Measured 151.2 [lb_av] 151.2 [lb_av ] eCW1 ([facility]) Diastolic blood pressure 73 mm[Hg] 73 mm[Hg] eCW1 ([facility]) Systolic blood pressure 123 mm[Hg] 123 mm[Hg] e CW1 ([facility]) Body temperature 98.6 [degF] 98.6 [degF] eCW1 ( [facility]) Respiratory rate 18 /min 18 /min eCW1 ([facility]) Heart rate 70 /min 70 /min eCW1 ([facility]) Body mass index (BMI) [Ratio] 25.56 kg/m2 25.56 kg/m2 eCW1 ([facility]) Body height 65.5 [in_us] 65.5 [in_us] eCW1 ([facility]) Body weight Measured 156 [lb_av] 156 [lb_av] eC W1 ([facility]) Diastolic blood pressure 78 mm[Hg] 78 mm[Hg] eCW1 ([facility]) Systolic blood pressure 118 mm[Hg] 118 mm[Hg] e CW1 ([facility]) Body temperature 98.0 [degF] 98.0 [degF] eCW1 ( [facility]) Respiratory rate 18 /min 18 /min eCW1 ([facility]) Heart rate 71 /min 71 /min eCW1 ([facility]) Body mass index (BMI) [Ratio] 25.66 kg/m2 25.66 kg/m2 eCW1 ([facility]) Body height 65.5 [in_us] 65.5 [in_us] eCW1 ([facility]) Body weight Measured 156.6 [lb_av] 156.6 [lb_av ] eCW1 ([facility]) Patient Treatment Plan of Care Planned Activity Planned Date Details Description Data Source (s) Progesterone 100 MG 10/03/2020 12:00:00 AM EST eCW1 ([facility]) Sulfamethoxazole 800 MG / Trimethoprim 160 MG Oral Tab let [Bactrim] 01/08/2020 12:00:00 AM EDT eCW1 ([facility] Phenazopyridine hydrochloride 100 MG Oral Tablet [Pyri dium] 01/08/2020 12:00:00 AM EDT eCW1 ([facility]) Multiple Vitamins-Minerals (MULTIVITAMIN WITH MINERALS ) tablet 04/28/2019 12:00:00 AM EDT [facility] Vitamin B 12 0.5 MG Oral Tablet 04/28/2019 12:00:00 AM EDT [facility]
--- NOTE | 2020-11-19 15:07 | REP ---
INDICATION: Coronavirus workup COMPARISON: 07/18/2018 TECHNIQUE: Portable AP view of the chest FINDINGS: The mediastinum and cardiac silhouette are stable and within normal limits for portable technique. The lung singh are clear without acute consolidation, effusion, or pneumothorax. Skeletal structures are intact. IMPRESSION: No acute cardiopulmonary process appreciated. <Electronically signed by Claudy Guevara > 11/19/20 [id number]
[2020-11-19 15:15] LABS: BASO % 0.7 % (0.0-1.0); EOS # 0.4 10^3/uL (0.0-0.5); EOS % 6.2 % (0.0-3.0); HEMOGLOBIN 12.5 g/dl (12.0-15.5); LYMPH # 2.2 10^3/uL (1.5-5.0); LYMPH % 36.8 % (24.0-44.0); MEAN CORPUSCULAR HEMOGLOBIN 30.3 pg (27.0-33.0); MEAN CORPUSCULAR HGB CONC 32.9 g/dl (32.0-36.5); MONO # 0.6 10^3/uL (0.0-0.8); MONO % 9.2 % (0.0-5.0); NEUTROPHILS # 2.8 10^3/uL (1.5-8.5); NEUTROPHILS % 46.8 % (36.0-66.0); PLATELET COUNT, AUTOMATED 212 10^3/uL (150-450); RED BLOOD COUNT 4.13 10^6/uL (4.00-5.40)
[2020-11-19] MEDS ORDERED: ASPI81CH33 PO (15:25)
[2020-11-19 15:47] LABS: ALBUMIN 3.7 GM/DL (3.2-5.2); ALT/SGPT 21 U/L (12-78); BILIRUBIN,TOTAL 0.2 MG/DL (0.2-1.0); BLOOD UREA NITROGEN 12 MG/DL (7-18); CALCIUM LEVEL 9.1 MG/DL (8.5-10.1); CARBON DIOXIDE LEVEL 27 MEQ/L (21-32); CHLORIDE LEVEL 111 MEQ/L (98-107); CK-MB VALUE MASS < 1.0 NG/ML (<3.6); CPK CREATINE PHOSPHOKINASE 54 U/L (26-192); CREATININE FOR GFR 0.73 MG/DL (0.55-1.30); FERRITIN 17 NG/ML (8-252); GLOMERULAR FILTRATION RATE > 60.0 (>60); GLUCOSE, FASTING 81 MG/DL (70-100); LDH LACTATE DEHYDROGENASE 116 U/L (84-246); MB/CK RELATIVE INDEX 1.85 (< OR =4); POTASSIUM SERUM 4.5 MEQ/L (3.5-5.1); SODIUM LEVEL 142 MEQ/L (136-145); TOTAL PROTEIN 6.1 GM/DL (6.4-8.2); TROPONIN I < 0.02 NG/ML (< 0.10)
--- NOTE | 2020-11-19 16:33 | ECGEPIP ---
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
[2020-11-19 17:07] LABS: RSV AMPLIFICATION NEGATIVE (NEGATIVE)
[2020-11-19 17:59] VITALS: BP 139/74
== END 2020-11-19 18:04 | disposition home or self-care (01) ==
LOC: M ED 13:54 → EDBD 13:54 → M ED 18:04
DX: Z20.822 Contact with and (suspected) exposure to COVID-19 (principal); R07.9 Chest pain, unspecified; R00.2 Palpitations; Z86.16 Personal history of COVID-19; I10 Essential (primary) hypertension; E78.5 Hyperlipidemia, unspecified; K21.9 Gastro-esophageal reflux disease without esophagitis; F41.9 Anxiety disorder, unspecified; F33.9 Major depressive disorder, recurrent, unspecified; Z98.84 Bariatric surgery status; Z79.82 Long term (current) use of aspirin; Z79.899 Other long term (current) drug therapy

== ENCOUNTER → 2020-12-11 | Outpatient (REF) | payer OTHER ==
[~2020-12-11] MED LIST changes: +ASPI81CH33 PO
== END ==
LOC: M LAB REF 11:31
PROVIDERS: ATTEND Internal Medicine
DX: D51.9 Vitamin B12 deficiency anemia, unspecified (principal)

== ENCOUNTER → 2021-05-12 | Outpatient (CLI) | payer OTHER ==
[~2021-05-12] MED LIST changes: +OMEP40CA4 PO; -OMEP40CA97 PO
== END ==
LOC: M LAB 09:59
PROVIDERS: ATTEND Allergy & Immunology
DX: L29.9 Pruritus, unspecified (principal); L50.1 Idiopathic urticaria

== ENCOUNTER → 2021-06-13 | Outpatient (REF) | payer OTHER ==
[2021-06-13 13:20] LABS: PERCENT SATURATION 11.6 % (13.2-45.0)
== END ==
LOC: M LAB REF 11:22
PROVIDERS: ATTEND Internal Medicine
DX: Z98.84 Bariatric surgery status (principal)

== ENCOUNTER 2021-11-14 06:14 | Emergency (ER) | payer OTHER ==
[~2021-11-14] VITALS: Ht 167.6 cm; Wt 64.5 kg
[2021-11-14 06:15] VITALS: BP 126/78
[2021-11-14] MEDS ORDERED: ACET-910 PO (06:32)
== END 2021-11-14 08:19 | disposition home or self-care (01) ==
LOC: M ED 06:14
DX: J06.9 Acute upper respiratory infection, unspecified (principal); Z20.822 Contact with and (suspected) exposure to COVID-19; F32.A Depression, unspecified; K21.9 Gastro-esophageal reflux disease without esophagitis; E78.5 Hyperlipidemia, unspecified; F17.200 Nicotine dependence, unspecified, uncomplicated; Z79.899 Other long term (current) drug therapy
CPT/HCPCS: 99282; U0003

== ENCOUNTER → 2021-12-10 | Outpatient (REF) | payer OTHER ==
[~2021-12-10] MED LIST changes: +ACET-910 PO
[2021-12-10 13:26] LABS: PERCENT SATURATION 44.7 % (13.2-45.0)
== END ==
LOC: M LAB REF 11:53
PROVIDERS: ATTEND Internal Medicine
DX: D50.9 Iron deficiency anemia, unspecified (principal)

== ENCOUNTER → 2022-01-20 | Outpatient (CLI) | payer OTHER | LOC: M WHC 08:56 | PROVIDERS: ATTEND Obstetrics & Gynecology | DX: Z12.31 Encounter for screening mammogram for malignant neoplasm of breast (principal) ==

== ENCOUNTER 2022-05-13 17:11 | Emergency (ER) | payer OTHER ==
[~2022-05-13] VITALS: Ht 167.6 cm; Wt 69.5 kg
[2022-05-13 17:11] VITALS: BP 123/71
[2022-05-13] MEDS ORDERED: ARIP1TAB6 (17:19)
[2022-05-13] MEDS ORDERED: CETI-24 (17:19)
[2022-05-13] MEDS ORDERED: ATOR1TAB21 (17:19)
[2022-05-13] MEDS ORDERED: OMEP40CA5 (17:19)
== END 2022-05-13 19:49 | disposition left against medical advice (07) ==
LOC: M ED 17:11
DX: Z53.21 Procedure and treatment not carried out due to patient leaving prior to being seen by health care provider (principal)

== ENCOUNTER → 2022-07-12 | Outpatient (CLI) | payer OTHER ==
[~2022-07-12] MED LIST changes: +ABIL1TAB11 PO; +ARIP1TAB6; +ATOR1TAB21 PO; +CETI-24 PO; -LABE100T4 PO; +LABE100T6 PO; +LEXA1TAB2 PO; +OMEP40CA5 PO; +VITMTA PO
== END ==
LOC: M LABSMTC 11:45
PROVIDERS: ATTEND Anesthesiology
DX: Z20.828 Contact with and (suspected) exposure to other viral communicable diseases (principal); Z11.59 Encounter for screening for other viral diseases

== ENCOUNTER 2022-07-29 06:01 | Day surgery (SDC) | payer OTHER ==
[~2022-07-29] VITALS: Ht 167.6 cm; Wt 73.0 kg
[2022-07-29] MEDS ORDERED: LR 1,000 ML IV SCH ×2 (06:35→08:20)
[2022-07-29] MEDS ORDERED: MIDAZOLAM INJ 2MG/2ML VIAL (J2250 PER 1MG) As Ordered ONE (07:09)
[2022-07-29] MEDS ORDERED: fentaNYL 100 MCG/2 ML INJECTION As Ordered ONE (07:10)
[2022-07-29] MEDS ORDERED: LIDOCAINE 1% MDV 20ML VIAL As Ordered ONE (07:14)
[2022-07-29] MEDS ORDERED: dexameTHASONE 4 MG/ML 1ML VIAL (J1100 PER 1MG) As Ordered ONE (07:14)
[2022-07-29] MEDS ORDERED: BUPIVACAINE HCL 0.5% 30ML VIAL As Ordered ONE (07:15)
[2022-07-29] MEDS ORDERED: ceFAZolin 2 GM/D5W 50 ML IV BAG (J0690 PER 500MG) As Ordered ONE (07:39)
[2022-07-29] MEDS ORDERED: MORPHINE 2 MG/ML 1ML VIAL IV PRN (08:20)
[2022-07-29] MEDS ORDERED: ONDANSETRON 4MG 2ML VIAL IV PRN (08:20)
[2022-07-29] MEDS ORDERED: fentaNYL 100 MCG/2 ML INJECTION IV PRN (08:20)
[2022-07-29] MEDS ORDERED: oxyCODONE 5MG TAB PO PRN (08:20)
[2022-07-29 11:26] VITALS: BP 104/55
== END 2022-07-29 11:30 | disposition home or self-care (01) ==
LOC: M SDC 06:01
PROVIDERS: ATTEND Podiatrist Foot & Ankle Surgery
DX: M20.11 Hallux valgus (acquired), right foot (principal); M21.611 Bunion of right foot; K21.9 Gastro-esophageal reflux disease without esophagitis; F12.10 Cannabis abuse, uncomplicated; F41.9 Anxiety disorder, unspecified; F32.A Depression, unspecified; Z79.899 Other long term (current) drug therapy
CPT/HCPCS: 28299; 76000; 81025; 88300; 97116; C1713; J0690; J1100; J2250; J3010

== ENCOUNTER → 2022-10-14 | Outpatient (REF) | payer OTHER ==
[2022-10-14 17:24] LABS: PERCENT SATURATION 4.3 % (13.2-45.0)
[2022-10-14 17:26] LABS: FERRITIN 3.7 NG/ML (7.3-270.7)
== END ==
LOC: M LAB REF 16:23
PROVIDERS: ATTEND Internal Medicine
DX: D50.9 Iron deficiency anemia, unspecified (principal); Z98.84 Bariatric surgery status; D51.9 Vitamin B12 deficiency anemia, unspecified

== ENCOUNTER → 2023-01-04 | Outpatient (REF) | payer OTHER ==
[2023-01-04 13:50] LABS: PERCENT SATURATION 4.5 % (13.2-45.0)
[2023-01-04 13:51] LABS: FERRITIN 4.3 NG/ML (7.3-270.7)
== END ==
LOC: M LAB REF 12:28
PROVIDERS: ATTEND Internal Medicine
DX: D50.9 Iron deficiency anemia, unspecified (principal); D51.9 Vitamin B12 deficiency anemia, unspecified; Z98.84 Bariatric surgery status

== ENCOUNTER → 2023-01-12 | Outpatient (CLI) | payer OTHER | LOC: M SLEEP HO 11:17 | PROVIDERS: ATTEND Nurse Practitioner Family | DX: R06.83 Snoring (principal) ==

== ENCOUNTER 2023-03-16 10:44 | Day surgery (SDC) | payer OTHER ==
[~2023-03-16] VITALS: Ht 167.6 cm; Wt 70.3 kg
[~2023-03-16 10:44] MED LIST changes: +FERR32TA PO; +MIDO2.5T PO; +NS 1,000 ML IV ONE
[2023-03-16] MEDS ORDERED: fentaNYL 100 MCG/2 ML INJECTION As Ordered ONE (12:01)
[2023-03-16 13:01] VITALS: BP 119/69
== END 2023-03-16 13:01 | disposition home or self-care (01) ==
LOC: M OPP 10:44
PROVIDERS: ATTEND Surgery
DX: K64.0 First degree hemorrhoids (principal); D50.9 Iron deficiency anemia, unspecified; K29.70 Gastritis, unspecified, without bleeding; F17.200 Nicotine dependence, unspecified, uncomplicated; Z79.02 Long term (current) use of antithrombotics/antiplatelets; Z79.899 Other long term (current) drug therapy
CPT/HCPCS: 43235; 45378; J3010

== ENCOUNTER → 2023-04-08 | Outpatient (REF) | payer OTHER ==
[~2023-04-08] MED LIST changes: -NS 1,000 ML IV ONE
[2023-04-08 18:26] LABS: PERCENT SATURATION 2.8 % (13.2-45.0)
== END ==
LOC: M LAB REF 17:28
PROVIDERS: ATTEND Internal Medicine
DX: D50.9 Iron deficiency anemia, unspecified (principal)

== ENCOUNTER → 2023-06-10 | Outpatient (REF) | payer OTHER ==
[2023-06-10 14:47] LABS: PERCENT SATURATION 9.8 % (13.2-45.0)
[2023-06-10 14:50] LABS: FERRITIN 14.8 NG/ML (7.3-270.7)
== END ==
LOC: M LAB REF 12:51
PROVIDERS: ATTEND Internal Medicine
DX: D50.9 Iron deficiency anemia, unspecified (principal)